=== PATIENT | female | born 1950 | race Hispanic/Latino ===

== ENCOUNTER 2017-02-08 10:58 | Inpatient (IN) | payer OTHER, MEDICARE ==
[2017-02-08 11:03] VITALS: BMI 24.5
--- NOTE | 2017-02-08 11:13 | C.PDOC ---
History Of Present Illness Patient is a 66 y/o F brought in for weakness. Patient seen immediately on my arrival. FS:114 on arrival. Patient reports that she went to bed normally last night and woke up at 5, fell to the ground and could not get up. Patient found by family and brought to ED at 11am. Patient complaining of R sided weakness and facial droop, with slurred speech. She reports hx of atrial fibrillation, but cannot state why she is not on anticoagulants. Denies hx of bleeding or significant anemia. PMD: Dr. Leiva Time Seen by Provider: 02/08/17 11:03 Chief Complaint (Nursing): Weakness/Neurological Deficit Past Medical History Vital Signs: Last Vital Signs Temp 98.6 F 02/08/17 11:04 Pulse 140 H 02/08/17 11:20 Resp 20 02/08/17 11:20 BP 118/99 H 02/08/17 11:20 Pulse Ox 98 02/08/17 11:20 - Medical History PMH: Atrial Fibrillation, Bronchitis, HTN, Hypothyroidism - [facility] Procedures EXCISE MINOR LES LID NEC (10/30/13) Family History: States: No Known Family Hx - Social History Hx Alcohol Use: Yes Hx Substance Use: No - Immunization History Hx Tetanus Toxoid Vaccination: No Hx Influenza Vaccination: Yes Hx Pneumococcal Vaccination: No Review Of Systems Except As Marked, All Systems Reviewed And Found Negative. Constitutional: Positive for: Weakness. Negative for: Fever Cardiovascular: Negative for: Chest Pain Respiratory: Negative for: Cough, Shortness of Breath, SOB with Excertion, Wheezing Genitourinary: Negative for: Dysuria Musculoskeletal: Negative for: Neck Pain Neurological: Positive for: Weakness, Numbness, Incoordination, Change in Speech. Negative for: Headache Physical Exam - Physical Exam Appears: Well, Non-toxic, No Acute Distress Head: Atraumatic, Normacephalic Eye(s): left: Other (L gaze deviation) Throat: Normal Neck: Normal, Normal ROM Chest: Symmetrical Cardiovascular: Rhythm Irregular Respiratory: Normal Breath Sounds, No Rales, No Rhonchi, No Wheezing Gastrointestinal/Abdominal: Soft, No Tenderness, No Mass, No Distention Back: Normal Inspection, No CVA Tenderness Extremity: Other (decreased strength to R side) Neurological/Psych: Oriented x3, No Normal Speech (slurred speech) Other Neurological Findings: Other (R facial droop) ED Course And Treatment - Laboratory Results Result Diagrams: 02/08/17 11:13 02/08/17 11:13 - Radiology CXR: Viewed By Me, Read By Radiologist CXR Interpretation: Yes: Other (Cardiomegaly is suggested. No infiltrate or pleural effusion. No pulmonary vascular derangement.) Critical Care Time - Critical Care Note Total Time (in mins): 30 Documented critical care: time excludes all time spent performing seperately billable procedures. NIHSS Stroke Scale - Date/Time Evaluation Performed Date Performed: 02/08/17 Time Performed: 11:04 - How Severe is the Stoke Level of Consciousness: 0=Alert LOC to Questions: 0=Both comments correct LOC to commands: 0=Obeys both correctly Best Gaze: 1=Partial gaze palsy Visual: 0=No visual loss Facial: 2=Partial (lower face paralysis) Motor Arm - Left: 0=No drift Motor Arm - Right: 1=Drift noted before 10 sec Motor Leg - Left: 0=No drift Motor Leg - Right: 1=Drift before 5 sec Limb Ataxia: 0=Absent Sensory: 0=Normal Best Language: 0=No aphasia Dysarthia: 1=Mild to moderate slurring Extinction & Inattention (Neglect): 0=Normal, no object Score: 6 Severity Of Stroke: 5-15= Moderate Stroke rTPA Inclusion/Exclusion - Refusal of Treatment Patient Refused Treatment: No - Inclusion Criteria for Altepase Patient is 18 years or Older: Yes The Clinical Diagnosis of Ischemic Stroke That is Causing a Potentially Disabling Neurological Deficit: Yes Time of Onset is Well Established to be Less Than 270 Minute Before Treatment Would Begin: No Risk/Benefit Discussed With Patient/Family Member Present: No Medical Decision Making Medical Decision Making: CT head shows L basal ganglia infarct. Spoke to Dr. Cummings, who recommends echo and standard cva workup. Patient is outside the window for TPA. Given cardizem 10mg IV and improvement of rapid atrial fibrillation. Spoke to Dr. Wiley, ICU who reports that patient can go to tele. Spoke to Dr. Muhammad and covering resident who will admit patient and order echo. Presenting ekg shows afib at 147bpm and improved to 105bpm with LAD after cardizem. Cxray negative. Labs reviewed Disposition - Disposition Disposition: HOSPITALIZED Disposition Time: 11:46 Condition: FAIR - Clinical Impression Clinical Impression: CVA (cerebral vascular accident)
[2017-02-08 11:19] LABS: BASO % 0.4 % (0.0-2.0); HEMATOCRIT 41.3 % (34.0-47.0); LYMPH # 0.8 K/uL (1.0-4.3); LYMPH % 6.9 % (20.0-40.0); MEAN CORPUSCULAR HGB CONC 33.3 g/dL (33.0-37.0); MEAN PLATELET VOLUME 7.5 fL (7.2-11.7); MONO # 0.8 K/uL (0.0-0.8); MONO % 6.8 % (0.0-10.0); PLATELET COUNT 182 K/uL (130-400); WHITE BLOOD COUNT 11.6 K/uL (4.8-10.8)
[2017-02-08 11:26] LABS: CHLORIDE 105 mmol/L (98-107)
[2017-02-08 11:27] LABS: SODIUM 141 mmol/L (132-148)
[2017-02-08 11:28] LABS: POTASSIUM 4.5 mmol/L (3.6-5.2)
[2017-02-08 11:30] LABS: ALB/GLOB RATIO 1.2 (1.0-2.1); ALKALINE PHOSPHATASE 54 U/L (38-126); ALT/SGPT 30 U/L (9-52); AST/SGOT 28 U/L (14-36); BILIRUBIN,TOTAL 0.8 mg/dL (0.2-1.3); BLOOD UREA NITROGEN 22 mg/dL (7-17); CALCIUM 9.8 mg/dl (8.6-10.4); CARBON DIOXIDE 23 mmol/L (22-30); CHOLESTEROL 201 mg/dL (0-199); GFR AFRICAN-AMERICAN > 60; GLUCOSE,RANDOM 119 mg/dL (65-105); TOTAL PROTEIN 7.5 g/dL (6.3-8.3)
--- NOTE | 2017-02-08 11:56 | RAD ---
HISTORY: cva COMPARISON: No prior. FINDINGS: LUNGS: No active pulmonary disease. PLEURA: No significant pleural effusion identified, no pneumothorax apparent. CARDIOVASCULAR: Cardiomegaly is suggested. No pulmonary vascular derangement nevertheless. OSSEOUS STRUCTURES: No significant abnormalities. VISUALIZED UPPER ABDOMEN: Normal. OTHER FINDINGS: None. IMPRESSION: Cardiomegaly is suggested. No infiltrate or pleural effusion. No pulmonary vascular derangement.
[2017-02-08 11:58] LABS: NEUTROPHIL 84 % (50-75); TOTAL CELLS COUNTED 100
--- NOTE | 2017-02-08 12:43 | CP.PCM.HP ---
History of Present Illness - History of Present Illness History of Present Illness: CC:" Blood Pressure" HPI: 66 year old female with past medical history of hypertension and atrial fibrillation presents to the emergency room after patient was found on the floor by EMS. Per patient she had no complaints the night prior. Patient states she woke up today at 5:30am and watched TV and had her normal routine. Patient that in the morning while she was checking her blood pressure she felt a bit dizzy but does not recall what time that happened. Patient states she does not remember falling on the floor. Per sister at bedside states the patient yelled "I can't breathe." That is when the sister ran downstairs but could not open the door because it was locked and her sister wasn't coming to the door. The sister called 911 and EMS found her on the floor and brought her to the hospital. Patient states this has never occurred in the past and she has never been hospitalized. Patient states she is compliant with all of her medication. Patient states she currently has a cough and blurry vision bilaterally. Patient states she does currently have weakness on her right arm but denies any numbness or tingling. Patient denies chest pain, shortness of breath, palpations, headache, dizziness, lightheadedness, numbness, tingling, nausea, vomiting, constipation, diarrhea, hematuria, dysuria, or change in hearing. Patient denies sick contacts or recent travel. PMD: Dr. 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 Patient smokes about a half to one pack per day for the past 30+ years. Patient denies alcohol use, illicit drug and sexual activity. Medications: 0.025mg Levothyroxine; 40mg Atorvastatin; 150mg Valsartan, Nebulizer daily Allergies: Penicillin (patient swells); Antihistamine (patient swells) Present on Admission - Present on Admission Any Indicators Present on Admission: No History of DVT/PE: No History of Uncontrolled Diabetes: No Urinary Catheter: No Review of Systems - Review of Systems Systems not reviewed;Unavailable: Unstable Vital Signs - Constitutional Constitutional: Weakness (right upper extremity weakness). absent: Fever, Headache - EENT Eyes: Blurred Vision Ears: absent: Decreased Hearing, Dizziness Nose/Mouth/Throat: absent: Hoarsness, Sore Throat - Cardiovascular Cardiovascular: absent: Chest Pain, Dyspnea, Palpitations - Respiratory Respiratory: Cough. absent: Dyspnea - Gastrointestinal Gastrointestinal: absent: Constipation, Diarrhea, Nausea, Vomiting - Genitourinary Genitourinary: absent: Dysuria, Hematuria - Musculoskeletal Musculoskeletal: absent: Numbness, Tingling - Integumentary Integumentary: Wounds - Neurological Neurological: absent: Abnormal Hearing, Dizziness, Numbness, Headaches, Paresthesias, Tingling Past Patient History - Past Social History Smoking Status: Never Smoked - CARDIAC Hx Atrial Fibrillation: Yes Hx Hypertension: Yes - PULMONARY Hx Bronchitis: Yes - ENDOCRINE/METABOLIC Hx Hypothyroidism: Yes - MUSCULOSKELETAL/RHEUMATOLOGICAL Hx Musculoskeletal Disorders: Yes (SEE COMMENT) Other/Comment: sciatica - PSYCHIATRIC Hx Substance Use: No - ANESTHESIA Hx Anesthesia: Yes Hx Anesthesia Reactions: No Hx Malignant Hyperthermia: No Meds Allergies/Adverse Reactions: Allergies Allergy/AdvReac Type Severity Reaction Status Date / Time Antihistamines - Alkylamine Allergy Mild a-fib Verified 02/08/17 11:00 Penicillins Allergy Mild RASH Verified 02/08/17 11:00 Physical Exam - Constitutional Appears: In Acute Distress - Head Exam Head Exam: ATRAUMATIC, NORMAL INSPECTION, NORMOCEPHALIC - Eye Exam Eye Exam: EOMI, Normal appearance, Nystagmus (right eye), Periorbital swelling ( right eye has minor swelling s/p fall), PERRL Pupil Exam: NORMAL ACCOMODATION - ENT Exam ENT Exam: Mucous Membranes Moist - Neck Exam Neck exam: Positive for: Normal Inspection - Respiratory Exam Respiratory Exam: Clear to Auscultation Bilateral, NORMAL BREATHING PATTERN. absent: Rales, Rhonchi, Wheezes, Stridor - Cardiovascular Exam Cardiovascular Exam: Tachycardia, Irregular Rhythm (atrial fibrillation ), +S1, +S2 - GI/Abdominal Exam GI & Abdominal Exam: Normal Bowel Sounds, Soft. absent: Tenderness - Extremities Exam Extremities exam: Positive for: tenderness. Negative for: pedal edema - Neurological Exam Neurological exam: Alert, Oriented x3 Additional comments: Cranial Nerves II-X, XII intact. Cranial nerve XII on the right abnormal - Expanded Neurological Exam Expanded Patient oriented to: person, place, time Speech: Slurred Speech Cranial nerves: EOM's Intact: Normal, Facial Palsey w/Forehead Movement: Normal , Facial Sensation: Normal, Nystagmus: Abnormal Right, Tongue Deviation: Normal Upper motor neuron: Babinski Sign: Normal Sensory exam: Lower Extremity 2 Point Discrimination: Normal, Lower Extremity Light Touch: Normal, Upper Extremity 2 Point Discrimination: Normal, Upper Extremity Light Touch: Normal Neuro motor strength exam: Left Upper Extremity: 5, Right Upper Extremity: 3, Left Lower Extremity: 5, Right Lower Extremity: 5 Coma Scale Eye Opening: SPONTANEOUS Coma Scale Motor Response: OBEYS COMMANDS Coma Scale Verbal: Oriented Coma Scale Total: 15 - Psychiatric Exam Psychiatric exam: Normal Affect - Skin Skin Exam: Abrasion (right knee abrasion), Dry, Normal Color, Warm Results - Vital Signs Recent Vital Signs: Last Vital Signs Temp 98.6 F 02/08/17 11:04 Pulse 140 H 02/08/17 11:20 Resp 20 02/08/17 11:20 BP 118/99 H 02/08/17 11:20 Pulse Ox 98 02/08/17 11:20 - Labs Result Diagrams: 02/08/17 11:13 02/08/17 11:13 Assessment & Plan (1) CVA (cerebral vascular accident) Assessment and Plan: Neurology consult: Dr. Cummings --> help appreciated CT of the Head: An acute or subacute brain infarction is suspected at the left basal ganglia at the posterior superior distribution. Follow-up CT or MRI is advised. No definite intracranial hemorrhage. Limited age-related diffuse cerebral atrophy. Per Dr. Zoila iniguez to start therapeutic Lovenox for atrial fibrillation f/u Carotid doppler f/u ECHO f/u PT eval and treat f/u OT eval and treat repeat swallow eval f/u Speech therapy Status: Acute (2) History of atrial fibrillation Assessment and Plan: Patient was not taking any medications for her atrial fibrillation at home. Patient was given a stat one time dose of 10mg Cardizem in the ED Cardiology Consult: Dr. Laguerre --> help appreciated ICU Consult: Dr. Wiley --> help appreciated - Patient started on 5mg IVP once in the ED per Dr. Wiley - Possible need for Cardizem drip HR becomes unstable f/u ECHO f/u carotid doppler Per Dr. Zoila iniguez to start therapeutic Lovenox for atrial fibrillation - Started 70mg Lovenox Q12 Started 300mg of Aspirin per rectum as patient failed the swallow evaluation Status: Acute (3) History of hypertension Assessment and Plan: Home medication: 150mg Valsartan - placed on hold because patient failed her swallow evaluation - Patient did not seem like she was compliant on her medication since she had 2 bottles of the medication completely full Status: Chronic (4) CAD (coronary artery disease) Assessment and Plan: Patient did not state she has history of coronary artery disease but her home medication is: Home medication: 40mg of Atorvastatin placed on hold since patient failed swallow evaluation - Patient did not seem like she was compliant on her medication since she had 4 bottles of the medication completely full Status: Chronic (5) History of hypothyroidism Assessment and Plan: Home medication: 0.025mg Levothyroixine - placed on hold because patient failed her swallow evaluation Status: Chronic
--- NOTE | 2017-02-08 12:44 | CT ---
PROCEDURE: CT HEAD WITHOUT CONTRAST. HISTORY: Code Stroke COMPARISON: None available. TECHNIQUE: Axial computed tomography images were obtained through the head/brain without intravenous contrast. Radiation dose: Total exam DLP = 937 mGy-cm. This CT exam was performed using one or more of the following dose reduction techniques: Automated exposure control, adjustment of the mA and/or kV according to patient size, and/or use of iterative reconstruction technique. FINDINGS: HEMORRHAGE: No intracranial hemorrhage. BRAIN: Well-circumscribed lucency is seen at the left basal ganglia at the mid to posterior portion and extends cephalad thinned to abut the left lateral ventricle body region. No intracranial hemorrhage is appreciated throughout the intracranial contents and pattern is suggestive of a acute or subacute brain infarction of the left basal ganglia. No additional lucency throughout the supra or infratentorial compartments to suggest similar infarction. No chronic lobar infarction identified throughout. Limited diffuse cerebral atrophy identified. No mass effect or suspicious extra-axial fluid collection. Midline brain and appears unremarkable grossly. VENTRICLES: Unremarkable. No hydrocephalus. CALVARIUM: Unremarkable. PARANASAL SINUSES: Unremarkable as visualized. No significant inflammatory changes. MASTOID AIR CELLS: Unremarkable as visualized. No inflammatory changes. OTHER FINDINGS: None. IMPRESSION: An acute or subacute brain infarction is suspected at the left basal ganglia at the posterior superior distribution. Follow-up CT or MRI is advised. No definite intracranial hemorrhage. Limited age-related diffuse cerebral atrophy. These stroke code results were communicated to Dr. Correia by telephone on 02/08/2017 11:20 a.m. red directly off the CT console due to PACs failure, written down with read back verification.
[2017-02-08] MEDS ORDERED: Sodium Chloride 0.9% 500 ML IV ONE ×2 (15:41→22:26)
[2017-02-08] MEDS ORDERED: Metoprolol 1 mg/ml Inj IVP ONE ×2 (15:45→22:26)
--- NOTE | 2017-02-08 17:19 | CP.PCM.CON ---
History of Present Illness - History of Present Illness History of Present Illness: 66 F with h/o tobacco abuse evaluated in ER with new stroke and afib rvr. According to patient she was unable to get up from the floor when she woke up and brought in by relatives with significant right arm weakness, right leg weakness, some slurred speech. Afib was noticed on the monitor and rate improved with 10mg iv given initially in ER. CT head showed left basal ganglia hypodensity suggesting subacute stroke. In ER HR ranging 90 to 150's BP in 100/ 50 range. Patient was awake oriented, some intermittent coughing noticed. Patient converted to sinus while spontaneously prior given to iv metoprolol. PMH tobacco abuse, ?htn, ?hypothyroid PSH none Meds ?synthyroid, losartan Allergies noticed Family history not available Review of Systems - Review of Systems All systems: reviewed and no additional remarkable complaints except (HPI) Past Patient History - Past Social History Smoking Status: Heavy Smoker > 10 Cigarettes Daily Alcohol: None Drugs: Denies Home Situation {Lives}: With Family - CARDIAC Hx Atrial Fibrillation: Yes Hx Hypertension: Yes - PULMONARY Hx Bronchitis: Yes - ENDOCRINE/METABOLIC Hx Hypothyroidism: Yes - MUSCULOSKELETAL/RHEUMATOLOGICAL Hx Musculoskeletal Disorders: Yes (SEE COMMENT) Other/Comment: sciatica - PSYCHIATRIC Hx Substance Use: No - ANESTHESIA Hx Anesthesia: Yes Hx Anesthesia Reactions: No Hx Malignant Hyperthermia: No Meds Allergies/Adverse Reactions: Allergies Allergy/AdvReac Type Severity Reaction Status Date / Time Antihistamines - Alkylamine Allergy Mild a-fib Verified 02/08/17 11:00 Penicillins Allergy Mild RASH Verified 02/08/17 11:00 - Medications Medications: Current Medications Albuterol/Ipratropium (Duoneb 3 Mg/0.5 Mg (3 Ml) Ud) 3 ml INH RQ6 [facility] Aspirin (Aspirin Supp) 300 mg OK DAILY [facility] Last Admin: 02/08/17 15:27 Dose: 300 mg Enoxaparin Sodium (Lovenox) 70 mg SC Q12H [facility] Nicotine (Nicoderm Cq) 1 patch TD DAILY [facility] Last Admin: 02/08/17 15:27 Dose: 1 patch Physical Exam - Additional Findings Additional findings: * HEENT JUDSON, weak right angle of mouth * Neck supple * Chest Clear, no wheezing, no rale * CVS Irregular then spontaneously converted to sinus * Ext no edema, abrasion notice on right knee, right elbow has redness, no tenderness * CABIN [employer] awake, very poor gag b/l, not coughing with tongue depressor, weak right angle of mouth, right buccinator, right arm 3-4/5, left arm 5/5, left leg 5/5, l Results - Vital Signs Recent Vital Signs: Last Vital Signs Temp 99.1 F 02/08/17 15:00 Pulse 67 02/08/17 16:02 Resp 20 02/08/17 16:02 BP 105/52 L 02/08/17 16:02 Pulse Ox 98 02/08/17 16:02 - Labs Result Diagrams: 02/08/17 11:13 02/08/17 11:13 Assessment & Plan - Assessment and Plan (Free Text) Assessment: * New basal ganglia stroke on the left? frontal extension with weakness on right side as noted in exam, poor gag. * New on set afib with rvr, with spontaneous conversion to the sinus * Lower side bp * Tobacco abuse Plan: * Rate rhythm control * NS bolus 500 * Aspiration precautions, as patient does not have good gag * Therapeutic anticoagulation as new stroke with afib * speech swallow eval, pt/ot * Maintain euglycemia * Q1h neurocheck, monitor in icu * CTA as recommended by neurology * GI/DVT prophylaxis * See orders for detail.
[2017-02-08] MEDS ORDERED: Iodixanol 320 MG/ML 100 ML BOTTLE IV ONE (17:47)
[2017-02-08] MEDS ORDERED: Enoxaparin 80 mg Syringe SC SCH (18:00)
--- NOTE | 2017-02-08 18:20 | CP.PCM.CON ---
History of Present Illness - History of Present Illness History of Present Illness: Mrs. Reyes is a 66-year-old woman who was brought to the ED after waking up today with right side weakness and speech difficulty. In the ED she was found to be in Afib with RVR. CT scan of the head showed subacute left basal ganglia infarct with some early changes in the left frontal region as well. She was given metoprolol and she converted to sinus rhythm and started on Lovenox for atrial fibrillation. When I saw the patient, she was able to comprehend normally, and her speech was fluent in content but dysarthric. She continued to complain of the right sided weakness and was having significant dysarthria with oropharyngeal muscle weakness. I recommended close observation and admission to the ICU for Q1 hour neuro-checks. This was discussed with the ICU attending. Review of Systems - Review of Systems All systems: reviewed and no additional remarkable complaints except Past Patient History - Past Social History Smoking Status: Heavy Smoker > 10 Cigarettes Daily Alcohol: None Drugs: Denies Home Situation {Lives}: With Family - CARDIAC Hx Atrial Fibrillation: Yes Hx Hypertension: Yes - PULMONARY Hx Bronchitis: Yes - ENDOCRINE/METABOLIC Hx Hypothyroidism: Yes - MUSCULOSKELETAL/RHEUMATOLOGICAL Hx Musculoskeletal Disorders: Yes (SEE COMMENT) Other/Comment: sciatica - PSYCHIATRIC Hx Substance Use: No - ANESTHESIA Hx Anesthesia: Yes Hx Anesthesia Reactions: No Hx Malignant Hyperthermia: No Meds Allergies/Adverse Reactions: Allergies Allergy/AdvReac Type Severity Reaction Status Date / Time Antihistamines - Alkylamine Allergy Mild a-fib Verified 02/08/17 11:00 Penicillins Allergy Mild RASH Verified 02/08/17 11:00 - Medications Medications: Current Medications Albuterol/Ipratropium (Duoneb 3 Mg/0.5 Mg (3 Ml) Ud) 3 ml INH RQ6 [facility] Aspirin (Aspirin Supp) 300 mg [place] DAILY [facility] Last Admin: 02/08/17 15:27 Dose: 300 mg Enoxaparin Sodium (Lovenox) 70 mg SC Q12H [facility] Nicotine (Nicoderm Cq) 1 patch TD DAILY [facility] Last Admin: 02/08/17 15:27 Dose: 1 patch Physical Exam - Constitutional Appears: In Acute Distress - Head Exam Head Exam: ATRAUMATIC, NORMAL INSPECTION, NORMOCEPHALIC - Eye Exam Eye Exam: EOMI, Normal appearance, PERRL - ENT Exam ENT Exam: Normal Exam - Neck Exam Neck exam: Positive for: Normal Inspection - Respiratory Exam Respiratory Exam: NORMAL BREATHING PATTERN - Cardiovascular Exam Cardiovascular Exam: Irregular Rhythm, +S1, +S2 - GI/Abdominal Exam GI & Abdominal Exam: Normal Bowel Sounds, Soft. absent: Tenderness - Rectal Exam Rectal Exam: Deferred - Extremities Exam Extremities exam: Positive for: normal inspection - Back Exam Back exam: NORMAL INSPECTION - Neurological Exam Neurological exam: Alert, CN II-XII Intact, Oriented x3 - Expanded Neurological Exam Expanded Patient oriented to: person, place, time Speech: Slurred Speech Cranial nerves: Facial Palsey w/Forehead Movement: Normal, Facial Sensation: Normal Ataxia: No Cerebellar Function: Finger to Nose: Abnormal Right, Heel to Johnson: Abnormal Right Upper motor neuron: Babinski Sign: Abnormal Right Sensory exam: Lower Extremity 2 Point Discrimination: Normal, Lower Extremity Light Touch: Normal, Lower Extremity Pin Prick: Normal, Lower Extremity Temperature: Normal, Upper Extremity 2 Point Discrimination: Normal, Upper Extremity Light Touch: Normal, Upper Extremity Pin Prick: Normal, Upper Extremity Temperature: Normal Neuro motor strength exam: Left Upper Extremity: 5, Right Upper Extremity: 3, Left Lower Extremity: 5, Right Lower Extremity: 3 DTR: Achilles Tendon Left: 2+, Achilles Tendon Right: 2+, Bicep Left: 2+, Bicep Right: 2+, Brachioradialis Left: 2+, Brachioradialis Right: 2+, Patellar Left: 2 +, Patellar Right: 2+, Tricep Left: 2+, Tricep Right: 2+ - Psychiatric Exam Psychiatric exam: Normal Affect, Normal Mood - Skin Skin Exam: Dry, Intact, Normal Color, Warm Results - Vital Signs Recent Vital Signs: Last Vital Signs Temp 98.5 F 02/08/17 16:36 Pulse 68 02/08/17 16:36 Resp 20 02/08/17 16:36 BP 118/65 02/08/17 16:36 Pulse Ox 98 02/08/17 16:36 - Labs Result Diagrams: 02/08/17 11:13 02/08/17 11:13 Labs: Laboratory Results - last 24 hr 02/08/17 17:22 POC Glucose (mg/dL) 93 Assessment & Plan (1) CVA (cerebral vascular accident) Assessment and Plan: The patient has an acute to subacute ischemic stroke involving the left basal ganglia and frontal lobe, likely due to cardio-embolic etiology in the setting of atrial fibrillation. I recommend the followin. Admit to ICU for close observation and Q1 hour neuro-checks 2. STAT CTA of the head/neck; MRI of the brain without contrast, when possible. Echocardiogram with bubble study 3. Treat Afib per ICU team and cardiology (may use anticoagulation, I recommend Eliquis 5 mg BID, if she is able to swallow) 4. PT/OT eval and treat 5. NPO till swallow eval 6. Fluids with NS at 100 mL/hr 7. Permissive HTN (only treat BP that is higher than 220/110 mm Hg for the next 24 hours) 8. Crestor 20 mg daily 9. Case management consult Thank you. Status: Acute Priority: High
--- NOTE | 2017-02-08 18:54 | CT ---
PROCEDURE: CT Angiography of the Brain. HISTORY: stroke with afib COMPARISON: Comparison is made to the previous CT of the head dated 02/08/2017 TECHNIQUE: CT angiography of the neck and intracranial arteries was performed. Coronal and sagittal maximum intensity projection reformated images were generated. This CT exam was performed using one or more of the following dose reduction techniques: Automated exposure control, adjustment of the mA and/or kV according to patient size, and/or use of iterative reconstruction technique. Total exam DLP: 621.22. FINDINGS: RIGHT CAROTID ARTERIES: Common Carotid Artery: Mild atherosclerotic disease and intimal thickening with foci of calcifications seen bilaterally. Carotid Bifurcation: No evidence of significant stenosis. Small foci of calcification. Internal Carotid Artery:Normal. External Carotid Artery (proximal branches): Normal. LEFT CAROTID ARTERIES: Common Carotid Artery: Mild atherosclerotic disease. Carotid Bifurcation: Foci of calcification seen at the carotid bifurcation associated with mural thickening. Internal Carotid Artery:Normal. External Carotid Artery (proximal branches): Normal. VERTEBRAL ARTERIES: Right Vertebral Artery: Normal. Left Vertebral Artery: Normal. INTERNAL CEREBRAL ARTERIES: Unremarkable. The skull base, petrous, cavernous and supraclinoid segments are bilaterally widely patient. ANTERIOR CEREBRAL ARTERIES: Unremarkable. A1 and A2 segments are widely patent. Smaller distal branches unremarkable, as visualized. MIDDLE CEREBRAL ARTERIES: There is occlusion at the distal left M1. The proximal portion M2 and M2 branches are also occluded. There is paucity of left middle cerebral artery branches compared to the right. There is no evidence of stenosis or occlusion at the right middle cerebral artery. POSTERIOR CIRCULATION: Basilar Artery: Unremarkable. Distal Vertebral Arteries: Unremarkable. Posterior Cerebral Arteries: Unremarkable. Posterior Inferior Cerebellar Arteries: Unremarkable. ANEURYSM/ VASCULAR MALFORMATIONS: None. OTHER FINDINGS: None. IMPRESSION: Occlusion at the distal left M1 likely due to thrombosis. Reconstitution of the distal left M2 branches. Atherosclerotic disease. Findings were reported to and discussed with the referring physician at 6:45 p.m. on 02/08/2017.
[2017-02-08] MEDS ORDERED: Eptifibatide 0.75 mg/ml 75 MG/100 ML BOTTLE IV SCH (19:15)
[2017-02-08] MEDS ORDERED: Eptifibatide 20 mg/10mL Inj IVP ONE (19:15)
[2017-02-08] MEDS: Sodium Chloride 0.9% 1,000 ML IV SCH (20:32)
[2017-02-08] MEDS: Albuterol-Ipratrop 3 mg / 0.5 (3 ml) UD INH SCH (21:03)
--- NOTE | 2017-02-08 21:21 | CARD ---
APPROVED REPORT EXAM: Two-dimensional and M-mode echocardiogram with Doppler and color Doppler. Other Information Quality : Technically DifficultRhythm : Atrial Fibrillation INDICATION CVA/TIA S/p stroke 2D DIMENSIONS IVSd1.0 (0.7-1.1cm)LVDd4.6 (3.9-5.9cm) PWd1.0 (0.7-1.1cm)LVDs3.5 (2.5-4.0cm) FS (%) 24.5 %LVEF (%)45.0 (>50%) M-Mode DIMENSIONS Left Atrium (MM)3.76 (2.5-4.0cm)Aortic Root3.25 (2.2-3.7cm) Aortic Cusp Exc.1.92 (1.5-2.0cm) Mitral Valve E/A ratio0.0 TDI E/Lateral E'0.0E/Medial E'0.0 Tricuspid Valve TR Peak [id number] Peak [id number] LEFT VENTRICLE The left ventricle is normal size. There is normal left ventricular wall thickness. The left ventricular function is mildly reduced. The left ventricular ejection fraction is about 45%. No regional wall motion abnormalities noted. The left ventricular diastolic function is normal. No left ventricle thrombus noted on this study. There is no ventricular septal defect visualized. There is no left ventricular aneurysm. There is no mass noted in the left ventricle. RIGHT VENTRICLE The right ventricle is normal size. There is normal right ventricular wall thickness. The right ventricular systolic function is normal. ATRIA The left atrium size is normal. The right atrium size is normal. The interatrial septum is intact with no evidence for an atrial septal defect. AORTIC VALVE The aortic valve is normal in structure and function. Leaflets are mildly thickened. No aortic regurgitation is present. There is no aortic valvular stenosis. There is no aortic valvular vegetation. MITRAL VALVE The mitral valve is normal in structure and function. There is no evidence of mitral valve prolapse. There is no mitral valve stenosis. There is no mitral valve regurgitation noted. TRICUSPID VALVE The tricuspid valve is normal in structure and function. There is no tricuspid valve regurgitation noted. There is no tricuspid valve prolapse or vegetation. There is no tricuspid valve stenosis. PULMONIC VALVE The pulmonary valve is normal in structure and function. There is no pulmonic valvular regurgitation. There is no pulmonic valvular stenosis. GREAT VESSELS The aortic root is normal in size. The ascending aorta is normal in size. The pulmonary artery is normal. The IVC is normal in size and collapses >50% with inspiration. PERICARDIAL EFFUSION The pericardium appears normal. There is no pleural effusion.
[2017-02-08] MEDS ORDERED: Digoxin 500 mcg/2ml (0.5 mg/2ml) Inj IVP ONE (22:26)
[2017-02-09] MEDS: Albuterol-Ipratrop 3 mg / 0.5 (3 ml) UD INH SCH ×4 (01:43→19:16)
[2017-02-09] MEDS: Sodium Chloride 0.9% 1,000 ML IV SCH ×3 (05:30→18:26)
[2017-02-09] MEDS ORDERED: Levothyroxine 25 MCG TAB PO SCH (06:30)
[2017-02-09 06:34] LABS: INR 1.1
[2017-02-09 06:35] LABS: EOS % 0.1 % (0.0-4.0); HEMATOCRIT 34.3 % (34.0-47.0); LYMPH # 1.1 K/uL (1.0-4.3); LYMPH % 16.8 % (20.0-40.0); MEAN CELL VOLUME 106.1 fL (81.0-99.0); MEAN CORPUSCULAR HGB CONC 33.9 g/dL (33.0-37.0); MEAN PLATELET VOLUME 7.8 fL (7.2-11.7); MONO # 0.6 K/uL (0.0-0.8); MONO % 8.6 % (0.0-10.0); RED CELL DISTRIBUTION WIDTH 12.9 % (11.5-14.5); WHITE BLOOD COUNT 6.8 K/uL (4.8-10.8)
[2017-02-09 06:39] LABS: CHLORIDE 106 mmol/L (98-107); POTASSIUM 3.9 mmol/L (3.6-5.2); SODIUM 140 mmol/L (132-148)
[2017-02-09 06:41] LABS: BILIRUBIN,TOTAL 0.7 mg/dL (0.2-1.3); GFR AFRICAN-AMERICAN > 60
[2017-02-09 06:42] LABS: ALB/GLOB RATIO 1.1 (1.0-2.1); ALKALINE PHOSPHATASE 43 U/L (38-126); ALT/SGPT 36 U/L (9-52); AST/SGOT 30 U/L (14-36); BLOOD UREA NITROGEN 15 mg/dL (7-17); CALCIUM 8.7 mg/dl (8.6-10.4); CARBON DIOXIDE 25 mmol/L (22-30); GLUCOSE,RANDOM 92 mg/dL (65-105)
[2017-02-09 06:52] LABS: MAGNESIUM 1.8 mg/dL (1.6-2.3); PHOSPHOROUS 3.1 mg/dL (2.5-4.5)
[2017-02-09 07:33] LABS: T4 6.69 ug/dL (5.5-11.0)
[2017-02-09 07:45] LABS: THYROID STIMULATING HORMONE 3.46 mIU/L (0.46-4.68)
--- NOTE | 2017-02-09 08:09 | CP.PCM.CON ---
History of Present Illness - History of Present Illness History of Present Illness: Reason For Consultation: A Fib HPI: 66F with Hx of A Fib admitted to [facility] ICU for acute CVA. Patient presented to ER with syncope and Right sided weakness. Patient had ischemic CVA based upon imaging. Due to uncertainty of the time patient was not a candidate for tPA. Patient had rapid A Fib in the ER requiring IV cardizem to control the heart rate. Patient currently in Sinus rhythm. Denies chest pain and palpitations Review of Systems - Constitutional Constitutional: Weakness - Cardiovascular Cardiovascular: absent: Chest Pain, Dyspnea - Respiratory Respiratory: absent: Dyspnea - Gastrointestinal Gastrointestinal: absent: Abdominal Pain - Musculoskeletal Musculoskeletal: absent: Arthralgias - Neurological Additional comments: As per neuro evaluation Past Patient History - Past Medical History & Family History Past Medical History?: Yes - Past Social History Smoking Status: Heavy Smoker > 10 Cigarettes Daily Alcohol: None Drugs: Denies Home Situation {Lives}: With Family - CARDIAC Hx Atrial Fibrillation: Yes Hx Hypertension: Yes - PULMONARY Hx Bronchitis: Yes - NEUROLOGICAL Hx Neurological Disorder: No - HEENT Hx HEENT Problems: No - RENAL Hx Chronic Kidney Disease: No - ENDOCRINE/METABOLIC Hx Hypothyroidism: Yes - HEMATOLOGICAL/ONCOLOGICAL Hx Blood Disorders: No - INTEGUMENTARY Hx Dermatological Problems: No - MUSCULOSKELETAL/RHEUMATOLOGICAL Hx Musculoskeletal Disorders: Yes (SEE COMMENT) Other/Comment: sciatica - GASTROINTESTINAL Hx Gastrointestinal Disorders: No - GENITOURINARY/GYNECOLOGICAL Hx Genitourinary Disorders: No - PSYCHIATRIC Hx Psychophysiologic Disorder: No Hx Substance Use: No - ANESTHESIA Hx Anesthesia: Yes Hx Anesthesia Reactions: No Hx Malignant Hyperthermia: No Meds Allergies/Adverse Reactions: Allergies Allergy/AdvReac Type Severity Reaction Status Date / Time Antihistamines - Alkylamine Allergy Mild a-fib Verified 02/08/17 11:00 Penicillins Allergy Mild RASH Verified 02/08/17 11:00 - Medications Medications: Current Medications Albuterol/Ipratropium (Duoneb 3 Mg/0.5 Mg (3 Ml) Ud) 3 ml INH RQ6 [facility] Last Admin: 02/09/17 07:19 Dose: 3 ml Famotidine (Pepcid) 20 mg IVP DAILY [facility] Eptifibatide (Integrilin) 75 mg in 100 mls @ 2.479 mls/hr IV .Q24H [facility] PRN Reason: 0.5 MCG/KG/MIN Last Admin: 02/08/17 20:17 Dose: 2.479 mls/hr Sodium Chloride (Sodium Chloride 0.9%) 1,000 mls @ 100 mls/hr IV .Q10H [facility] Last Admin: 02/09/17 07:29 Dose: 100 mls/hr Nicotine (Nicoderm Cq) 1 patch TD DAILY [facility] Last Admin: 02/08/17 15:27 Dose: 1 patch Pneumococcal Polyvalent Vaccine (Pneumovax 23 Vaccine) 0.5 ml IM .ONCE ONE Stop: 02/10/17 10:01 Physical Exam - Constitutional Appears: No Acute Distress - Head Exam Head Exam: ATRAUMATIC - Eye Exam Eye Exam: EOMI, PERRL - ENT Exam ENT Exam: Mucous Membranes Moist - Neck Exam Neck exam: Positive for: Full Rom, Normal Inspection - Respiratory Exam Respiratory Exam: NORMAL BREATHING PATTERN - Cardiovascular Exam Cardiovascular Exam: REGULAR RHYTHM, +S1, +S2 - Neurological Exam Additional comments: Neuro exam as per Neuro eval - Psychiatric Exam Psychiatric exam: Normal Mood Results - Vital Signs Recent Vital Signs: Last Vital Signs Temp 98.2 F 02/09/17 04:00 Pulse 66 02/09/17 06:30 Resp 23 02/09/17 06:30 BP 127/55 L 02/09/17 05:54 Pulse Ox 98 02/09/17 06:30 - Labs Result Diagrams: 02/09/17 06:19 02/09/17 06:19 Labs: Laboratory Results - last 24 hr 02/08/17 02/08/17 02/09/17 17:22 23:06 06:19 WBC 6.8 RBC 3.23 L Hgb 11.6 D Hct 34.3 MCV 106.1 H MCH 36.0 H MCHC 33.9 RDW 12.9 Plt Count 133 MPV 7.8 Neut % (Auto) 74.5 Lymph % (Auto) 16.8 L Ceiba % (Auto) 8.6 Eos % (Auto) 0.1 Baso % (Auto) 0.0 Neut # 5.1 Lymph # 1.1 Ceiba # 0.6 Eos # 0.0 Baso # 0.0 PT INR APTT Sodium Potassium Chloride Carbon Dioxide Anion Gap BUN Creatinine Est GFR ( Amer) Est GFR (Non-Af Amer) POC Glucose (mg/dL) 93 74 Random Glucose Calcium Phosphorus Magnesium Total Bilirubin AST ALT Alkaline Phosphatase Total Protein Albumin Globulin Albumin/Globulin Ratio Thyroxine (T4) TSH 3rd Generation 02/09/17 02/09/17 02/09/17 06:19 06:19 06:19 WBC RBC Hgb Hct MCV MCH MCHC RDW Plt Count MPV Neut % (Auto) Lymph % (Auto) Ceiba % (Auto) Eos % (Auto) Baso % (Auto) Neut # Lymph # Ceiba # Eos # Baso # PT 12.1 INR 1.1 APTT 27 Sodium 140 Potassium 3.9 Chloride 106 Carbon Dioxide 25 Anion Gap 13 BUN 15 Creatinine 0.8 Est GFR ( Amer) > 60 Est GFR (Non-Af Amer) > 60 POC Glucose (mg/dL) Random Glucose 92 Calcium 8.7 Phosphorus 3.1 Magnesium 1.8 Total Bilirubin 0.7 AST 30 ALT 36 Alkaline Phosphatase 43 Total Protein 6.0 L Albumin 3.1 L D Globulin 2.9 Albumin/Globulin Ratio 1.1 Thyroxine (T4) 6.69 TSH 3rd Generation 3.46 02/09/17 07:08 WBC RBC Hgb Hct MCV MCH MCHC RDW Plt Count MPV Neut % (Auto) Lymph % (Auto) Ceiba % (Auto) Eos % (Auto) Baso % (Auto) Neut # Lymph # Ceiba # Eos # Baso # PT INR APTT Sodium Potassium Chloride Carbon Dioxide Anion Gap BUN Creatinine Est GFR ( Amer) Est GFR (Non-Af Amer) POC Glucose (mg/dL) 89 Random Glucose Calcium Phosphorus Magnesium Total Bilirubin AST ALT Alkaline Phosphatase Total Protein Albumin Globulin Albumin/Globulin Ratio Thyroxine (T4) TSH 3rd Generation Assessment & Plan - Assessment and Plan (Free Text) Assessment: 1. Paraxysmal A Fib: Rate controlled. Now NSR. Patient receiving Integrilin drip. Recommend adding therapeutic Lovenox till patient can take oral Eliquis, If ok from neurology. Not on any fixed dose cardizem or Lopressor to avaoid hypotension. Will give prn IV Lopressor 2. CAD: ECHO with EF of 40-45% and some wall motion abnormalities. Given risk factors CAD high likely. No active work up for CAD at this time. Recommend antiplatelets and statins 3. CVA: Management as per Stroke neurologist. CVA most likley from A Fib. However will do bubble study today with TTE and LASHAWN Sunday
--- NOTE | 2017-02-09 12:40 | CP.PCM.PN ---
Subjective - Date & Time of Evaluation Date of Evaluation: 02/09/17 Time of Evaluation: 12:34 - Subjective Subjective: Mrs. Reyes was seen and examined today at bedside in the ICU. She was significantly more alert today with improved facial droop and movement on the right side. There were no acute events overnight. She was started on Integrillin at around 12 AM. I discussed the plan with the ICU attending, as well as cardiology, to repeat a CT head at 2PM (14 hours after Integrillin), then if the CT head does not show any hemorrhagic conversion, we will give aspirin 81 mg. We will stop Integrillin at 16 hours and give 2.5 mg of Eliquis , which we will maintain every 12 hours (Eliquis 2.5 mg Q12). Objective - Vital Signs/Intake and Output Vital Signs (last 24 hours): Temp Pulse Resp BP Pulse Ox 98.1 F 66 23 127/55 L 98 02/09/17 08:00 02/09/17 06:30 02/09/17 06:30 02/09/17 05:54 02/09/17 06:30 Intake and Output: 02/09/17 02/09/17 06:59 18:59 Intake Total 1478.0 616.8 Output Total 750 200 Balance 728.0 416.8 - Medications Medications: Current Medications Albuterol/Ipratropium (Duoneb 3 Mg/0.5 Mg (3 Ml) Ud) 3 ml INH RQ6 [facility] Last Admin: 02/09/17 07:19 Dose: 3 ml Famotidine (Pepcid) 20 mg IVP DAILY [facility] Last Admin: 02/09/17 09:30 Dose: 20 mg Eptifibatide (Integrilin) 75 mg in 100 mls @ 2.479 mls/hr IV .Q24H [facility] PRN Reason: 0.5 MCG/KG/MIN Last Admin: 02/08/17 20:17 Dose: 2.479 mls/hr Sodium Chloride (Sodium Chloride 0.9%) 1,000 mls @ 100 mls/hr IV .Q10H [facility] Last Admin: 02/09/17 07:29 Dose: 100 mls/hr Nicotine (Nicoderm Cq) 1 patch TD DAILY [facility] Last Admin: 02/08/17 15:27 Dose: 1 patch Pneumococcal Polyvalent Vaccine (Pneumovax 23 Vaccine) 0.5 ml IM .ONCE ONE Stop: 02/10/17 10:01 - Labs Labs: 02/09/17 06:19 02/09/17 06:19 PT 12.1 SECONDS (9.7-12.2) 02/09/17 06:19 INR 1.1 02/09/17 06:19 APTT 27 SECONDS (21-34) 02/09/17 06:19 - Neurological Exam Neurological Exam: Alert, Awake, CN II-XII Intact, Oriented x3 Neuro motor strength exam: Left Upper Extremity: 5, Right Upper Extremity: 3, Left Lower Extremity: 5, Right Lower Extremity: 4 Additional comments: NIHSS= 4 Assessment and Plan (1) CVA (cerebral vascular accident) Assessment & Plan: Left MCA infarct with residual distal thrombus s/p integrillin bolus and drip, she is improving. Will continue infusion as outlined above. Will repeat CT head non-contrast and CTA of the head/neck at 2 PM and follow-up with the plan depending on the results. Status: Acute
--- NOTE | 2017-02-09 14:59 | CP.PCM.PN ---
<Eugenie Fisher - Last Filed: 02/09/17 18:55> Subjective - Date & Time of Evaluation Date of Evaluation: 02/09/17 Time of Evaluation: 07:00 - Subjective Subjective: Medicine Progress Note: Patient was seen and examined in the AM at bedside. Per nurse the patient passed the swallow the evaluation. Patient states her vision is still blurry and it is has not changed since yesterday. Patient states her right arm is a bit painful when she abducts her arm. Patient denies any other complaints. Objective - Vital Signs/Intake and Output Vital Signs (last 24 hours): Temp Pulse Resp BP Pulse Ox 98.1 F 66 23 127/55 L 98 02/09/17 08:00 02/09/17 06:30 02/09/17 06:30 02/09/17 05:54 02/09/17 06:30 Intake and Output: 02/09/17 02/09/17 06:59 18:59 Intake Total 1478.0 616.8 Output Total 750 200 Balance 728.0 416.8 - Medications Medications: Current Medications Albuterol/Ipratropium (Duoneb 3 Mg/0.5 Mg (3 Ml) Ud) 3 ml INH RQ6 [facility] Last Admin: 02/09/17 13:23 Dose: 3 ml Apixaban (Eliquis) 2.5 mg PO BID [facility] Diphenhydramine HCl (Benadryl) 25 mg PO ONCE ONE Stop: 02/09/17 15:01 Famotidine (Pepcid) 20 mg IVP DAILY [facility] Last Admin: 02/09/17 09:30 Dose: 20 mg Eptifibatide (Integrilin) 75 mg in 100 mls @ 2.479 mls/hr IV .Q24H [facility] PRN Reason: 0.5 MCG/KG/MIN Last Admin: 02/08/17 20:17 Dose: 2.479 mls/hr Sodium Chloride (Sodium Chloride 0.9%) 1,000 mls @ 100 mls/hr IV .Q10H [facility] Last Admin: 02/09/17 07:29 Dose: 100 mls/hr Nicotine (Nicoderm Cq) 1 patch TD DAILY [facility] Last Admin: 02/09/17 13:38 Dose: 1 patch Pneumococcal Polyvalent Vaccine (Pneumovax 23 Vaccine) 0.5 ml IM .ONCE ONE Stop: 02/10/17 10:01 - Labs Labs: 02/09/17 06:19 02/09/17 06:19 PT 12.1 SECONDS (9.7-12.2) 02/09/17 06:19 INR 1.1 02/09/17 06:19 APTT 27 SECONDS (21-34) 02/09/17 06:19 - Constitutional Appears: Well, No Acute Distress - Head Exam Head Exam: ATRAUMATIC, NORMAL INSPECTION, NORMOCEPHALIC - Eye Exam Eye Exam: EOMI, Normal appearance, PERRL Pupil Exam: NORMAL ACCOMODATION, PERRL - ENT Exam ENT Exam: Mucous Membranes Moist - Respiratory Exam Respiratory Exam: Clear to Ausculation Bilateral, NORMAL BREATHING PATTERN - Cardiovascular Exam Cardiovascular Exam: REGULAR RHYTHM, RRR, +S1, +S2 - GI/Abdominal Exam GI & Abdominal Exam: Soft, Normal Bowel Sounds. absent: Tenderness - Extremities Exam Extremities Exam: Tenderness (right arm has tenderness when patient abducts her arm). absent: Full ROM (right arm has limited range of motion ) - Neurological Exam Neurological Exam: Alert, Awake, Oriented x3 Neuro motor strength exam: Left Upper Extremity: 5, Right Upper Extremity: 3, Left Lower Extremity: 5, Right Lower Extremity: 5 - Psychiatric Exam Psychiatric exam: Normal Affect - Skin Skin Exam: Normal Color, Warm Assessment and Plan (1) CVA (cerebral vascular accident) Assessment & Plan: Neurology consult: Dr. Cummings --> help appreciated CT of the Head: An acute or subacute brain infarction is suspected at the left basal ganglia at the posterior superior distribution. Follow-up CT or MRI is advised. No definite intracranial hemorrhage. Limited age-related diffuse cerebral atrophy. Per Dr. Zoila iniguez to start therapeutic Lovenox for atrial fibrillation Carotid doppler: Right duplex scan does not suggest hemodynamically significant stenosis; Left duplex scan does not suggest hemodynamically significant stenosis Head/Neck CTA: No significant interval change in occlusion of the distal left M1 segment likely related to thrombosis with attenuation of the M2 segments. No hemodynamicaly significant stenosis in the internal carotid arteries. Extensive calcidied atherosclerotic plaques in the left proximal internal carotid artery. ECHO 40-45% EF Patient started on Integrillin bolus and drip Started on statin f/u PT eval and treat f/u OT eval and treat f/u Speech therapy Status: Acute (2) History of atrial fibrillation Assessment & Plan: Patient was not taking any medications for her atrial fibrillation at home. Patient was given a stat one time dose of 10mg Cardizem in the ED Cardiology Consult: Dr. Laguerre --> help appreciated ICU Consult: Dr. Wiley --> help appreciated - Patient started on 5mg IVP once in the ED per Dr. Wiley - Possible need for Cardizem drip HR becomes unstable Per Dr. Zoila iniguez to start therapeutic Lovenox for atrial fibrillation - Started 70mg Lovenox Q12 Started 300mg of Aspirin Status: Acute (3) CAD (coronary artery disease) Assessment & Plan: Home medication: 40mg of Atorvastatin Status: Chronic (4) History of hypothyroidism Assessment & Plan: Home medication: 0.025mg Levothyroixine Status: Chronic <Octavio Muhammad Jr. - Last Filed: 02/12/17 13:59> Objective - Vital Signs/Intake and Output Vital Signs (last 24 hours): Temp Pulse Resp BP Pulse Ox 98.4 F 112 H 20 125/52 L 96 02/12/17 07:00 02/12/17 07:00 02/12/17 07:00 02/12/17 07:00 02/12/17 07:00 Intake and Output: 02/12/17 02/12/17 06:59 18:59 Intake Total 480 Balance 480 - Medications Medications: Current Medications Albuterol/Ipratropium (Duoneb 3 Mg/0.5 Mg (3 Ml) Ud) 3 ml INH RQ6 [facility] Last Admin: 02/12/17 13:35 Dose: Not Given Apixaban (Eliquis) 2.5 mg PO BID [facility] Last Admin: 02/12/17 10:13 Dose: 2.5 mg Aspirin (Ecotrin) 81 mg PO DAILY [facility] Last Admin: 02/12/17 10:13 Dose: 81 mg Famotidine (Pepcid) 20 mg PO DAILY [facility] Last Admin: 02/12/17 10:13 Dose: 20 mg Levothyroxine Sodium (Synthroid) 25 mcg PO DAILY@0630 [facility] Last Admin: 02/12/17 05:52 Dose: 25 mcg Magnesium Oxide (Mag-Ox) 400 mg PO BID [facility] Last Admin: 02/12/17 10:13 Dose: 400 mg Methylprednisolone (Solu-Medrol) 125 mg IV ONCE ONE Stop: 02/12/17 14:01 Metoprolol Tartrate (Lopressor) 12.5 mg PO BID PRN PRN Reason: Heart rate Last Admin: 02/12/17 10:15 Dose: 12.5 mg Nicotine (Nicoderm Cq) 1 patch TD DAILY [facility] Last Admin: 02/12/17 10:13 Dose: 1 patch Rosuvastatin Calcium (Crestor) 20 mg PO HS [facility] Last Admin: 02/11/17 21:31 Dose: 20 mg - Labs Labs: 02/12/17 07:08 02/12/17 07:08 PT 12.1 SECONDS (9.7-12.2) 02/09/17 06:19 INR 1.1 02/09/17 06:19 APTT 27 SECONDS (21-34) 02/09/17 06:19 Attending/Attestation - Attestation I have personally seen and examined this patient.: Yes I have fully participated in the care of the patient.: Yes I have reviewed all pertinent clinical information, including history, physical exam and plan: Yes Notes (Text): 02/12/17 13:59 Agree with resident note and plan of care
--- NOTE | 2017-02-09 15:07 | VASCLAB ---
PROCEDURE: HISTORY: s/p stroke COMPARISON: None available. TECHNIQUE: Grayscale and duplex Doppler evaluation of the cervical carotid and vertebral arteries were performed. The common carotid, carotid bifurcations and cervical Internal Carotid Artery (ICA) and proximal External Carotid Artery (ECA) were evaluated. The vertebral arteries were evaluated for gross patency and flow direction. Report prepared by KAILASH Evans FINDINGS: RIGHT CAROTID ARTERIES: 1. Common Carotid Artery: No significant focal plaque formation of the right common carotid artery. Maximum Peak Systolic velocity: 56 cm/sec: End-diastolic velocity 11 cm/sec. 2. Carotid Bifurcation: plaque formation. Maximum Peak Systolic velocity: 36 cm/sec: End-diastolic velocity 9 cm/sec. 3. Internal Carotid Artery: Plaque description: 3.1. Proximal Segment: Peak systolic velocity 115 cm/sec: End-diastolic velocity 27 cm/sec - % stenosis 0-15% 3.2. Middle Segment: Peak systolic velocity 66 cm/sec: End-diastolic velocity 25 cm/sec - % stenosis 0-15% 3.3. Distal Segment: Peak systolic velocity 89 cm/sec: End-diastolic velocity 24 cm/sec - % stenosis 0-15% 4. External Carotid Artery: No significant focal plaque formation. Peak systolic velocity 90 cm/sec 5. ICA/CCA Ratio: 2.1 LEFT CAROTID ARTERIES: 1. Common Carotid Artery: No significant focal plaque formation of the left common carotid artery. Maximum Peak Systolic velocity: 59 cm/sec: End-diastolic velocity 11 cm/sec. 2. Carotid Bifurcation: Calcific plaque formation. Maximum Peak Systolic velocity: 38 cm/sec: End-diastolic velocity 0 cm/sec. 3. Internal Carotid Artery: Severe plaque formation of the left proximal ICA which does not results in a hemodynamically significant stenosis. Plaque description: Calcific 3.1. Proximal Segment: Peak systolic velocity 47 cm/sec: End-diastolic velocity 14 cm/sec - % stenosis 0-15% 3.2. Middle Segment: Peak systolic velocity 46 cm/sec: End-diastolic velocity 15 cm/sec - % stenosis 0-15% 3.3. Distal Segment: Peak systolic velocity 73 cm/sec: End-diastolic velocity 11 cm/sec - % stenosis 0-15% 4. External Carotid Artery: No significant focal plaque formation. Peak systolic velocity 86 cm/sec 5. ICA/CCA Ratio: 1.2 VERTEBRAL ARTERIES: 1. Right Vertebral Artery: The right vertebral artery flow direction is antegrade. 2. Left Vertebral Artery: The left vertebral artery flow direction is antegrade. OTHER FINDINGS: 1. Right Brachial Blood pressure: 110 mmHg. 2. Left Brachial Blood pressure: mmHg. IMPRESSION: RIGHT: Duplex scan does not suggest hemodynamically significant stenosis of the right extracranial carotid arteries. LEFT: Duplex scan does not suggest hemodynamically significant stenosis of the left extracranial carotid arteries.
[2017-02-09] MEDS ORDERED: Iodixanol 320 MG/ML 100 ML BOTTLE IV ONE (16:57)
--- NOTE | 2017-02-09 17:34 | CP.CCUPN ---
<Martir Back R - Last Filed: 02/09/17 17:38> CCU Subjective - Physician Review Subjective (Free Text): Patient was seen and examined this morning at bedside. She stated that she felt well and did not have any complaints. Her facial droop had improved significantly and while she still complained of right sided UE and LE weakness, her muscle strength had improved since yesterday. She denied chest pain, shortness of breath, headache, blurry vision, worsening of neurological symptoms. 02/09/17 17:38 CCU Objective - Vital Signs / Intake & Output Intake and Output (Last 8hrs): Intake & Output 02/09/17 02/09/17 02/09/17 06:59 14:59 22:59 Intake Total 1272.4 616.8 Output Total 350 200 Balance 922.4 416.8 Weight 152 lb 1.903 oz Intake: Intake, IV Amount 1272.4 616.8 left antecubital area 22.4 16.8 left forearm 1250 600 Oral 0 0 Output: Urine 350 200 Urine, Voided 350 200 Other: # Voids Urine, Voided 1 # Bowel Movements 0 0 - Physical Exam Head: Positive for: Atraumatic Pupils: Positive for: PERRL Extroacular Muscles: Positive for: EOMI Mouth: Positive for: Moist Mucous Membranes Respiratory/Chest: Positive for: Clear to Auscultation. Negative for: Wheezes Cardiovascular: Positive for: Regular Rate and Rhythm, Normal S1, S2 Abdomen: Positive for: Normal Bowel Sounds. Negative for: Tenderness Upper Extremity: Positive for: Normal ROM (decreased range of motion in right arm) Lower Extremity: Positive for: Normal ROM (decreased range of motion in right leg) Neurological: Positive for: CN II-XII Intact, Speech Normal Psychiatric: Positive for: Alert, Oriented x 3 - Medications Active Medications: Active Medications Generic Name Dose Route Start Last Admin Trade Name Freq PRN Reason Stop Dose Admin Albuterol/Ipratropium 3 ml 02/08/17 20:00 02/09/17 13:23 Duoneb 3 Mg/0.5 Mg (3 Ml) Ud INH 3 ml RQ6 ANTIONETTE Administration Apixaban 2.5 mg 02/09/17 15:00 Eliquis PO BID ANTIONETTE Famotidine 20 mg 02/09/17 10:00 02/09/17 09:30 Pepcid IVP 20 mg DAILY ANTIONETTE Administration Sodium Chloride 1,000 mls @ 100 mls/hr 02/08/17 19:30 02/09/17 07:29 Sodium Chloride 0.9% IV 100 mls/hr .Q10H ANTIONETTE Administration Nicotine 1 patch 02/08/17 12:45 02/09/17 13:38 Nicoderm Cq TD 1 patch DAILY ANTIONETTE Administration Pneumococcal Polyvalent Vaccine 0.5 ml 02/10/17 10:00 Pneumovax 23 Vaccine IM 02/10/17 10:01 .ONCE ONE - Patient Studies Lab Studies: Lab Studies 02/09/17 02/09/17 02/09/17 Range/Units 16:06 11:11 07:08 WBC (4.8-10.8) K/uL RBC (3.80-5.20) Mil/uL Hgb (11.0-16.0) g/dL Hct (34.0-47.0) % MCV (81.0-99.0) fL MCH (27.0-31.0) pg MCHC (33.0-37.0) g/dL RDW (11.5-14.5) % Plt Count (130-400) K/uL MPV (7.2-11.7) fL Neut % (Auto) (50.0-75.0) % Lymph % (Auto) (20.0-40.0) % Glasscock % (Auto) (0.0-10.0) % Eos % (Auto) (0.0-4.0) % Baso % (Auto) (0.0-2.0) % Neut # (1.8-7.0) K/uL Lymph # (1.0-4.3) K/uL Glasscock # (0.0-0.8) K/uL Eos # (0.0-0.7) K/uL Baso # (0.0-0.2) K/uL PT (9.7-12.2) SECONDS INR APTT (21-34) SECONDS Sodium (132-148) mmol/L Potassium (3.6-5.2) mmol/L Chloride (98-107) mmol/L Carbon Dioxide (22-30) mmol/L Anion Gap (10-20) BUN (7-17) mg/dL Creatinine (0.7-1.2) MG/DL Est GFR ( Amer) Est GFR (Non-Af Amer) POC Glucose (mg/dL) 97 102 89 (65-110) mg/dL Random Glucose (65-105) mg/dL Calcium (8.6-10.4) mg/dl Phosphorus (2.5-4.5) mg/dL Magnesium (1.6-2.3) mg/dL Total Bilirubin (0.2-1.3) mg/dL AST (14-36) U/L ALT (9-52) U/L Alkaline Phosphatase (38-126) U/L Total Protein (6.3-8.3) g/dL Albumin (3.5-5.0) g/dL Globulin (2.2-3.9) gm/dL Albumin/Globulin Ratio (1.0-2.1) Thyroxine (T4) (5.5-11.0) ug/dL TSH 3rd Generation (0.46-4.68) mIU/L 02/09/17 02/09/17 02/09/17 Range/Units 06:19 06:19 06:19 WBC (4.8-10.8) K/uL RBC (3.80-5.20) Mil/uL Hgb (11.0-16.0) g/dL Hct (34.0-47.0) % MCV (81.0-99.0) fL MCH (27.0-31.0) pg MCHC (33.0-37.0) g/dL RDW (11.5-14.5) % Plt Count (130-400) K/uL MPV (7.2-11.7) fL Neut % (Auto) (50.0-75.0) % Lymph % (Auto) (20.0-40.0) % Glasscock % (Auto) (0.0-10.0) % Eos % (Auto) (0.0-4.0) % Baso % (Auto) (0.0-2.0) % Neut # (1.8-7.0) K/uL Lymph # (1.0-4.3) K/uL Glasscock # (0.0-0.8) K/uL Eos # (0.0-0.7) K/uL Baso # (0.0-0.2) K/uL PT 12.1 (9.7-12.2) SECONDS INR 1.1 APTT 27 (21-34) SECONDS Sodium 140 (132-148) mmol/L Potassium 3.9 (3.6-5.2) mmol/L Chloride 106 (98-107) mmol/L Carbon Dioxide 25 (22-30) mmol/L Anion Gap 13 (10-20) BUN 15 (7-17) mg/dL Creatinine 0.8 (0.7-1.2) MG/DL Est GFR ( Amer) > 60 Est GFR (Non-Af Amer) > 60 POC Glucose (mg/dL) (65-110) mg/dL Random Glucose 92 (65-105) mg/dL Calcium 8.7 (8.6-10.4) mg/dl Phosphorus 3.1 (2.5-4.5) mg/dL Magnesium 1.8 (1.6-2.3) mg/dL Total Bilirubin 0.7 (0.2-1.3) mg/dL AST 30 (14-36) U/L ALT 36 (9-52) U/L Alkaline Phosphatase 43 (38-126) U/L Total Protein 6.0 L (6.3-8.3) g/dL Albumin 3.1 L D (3.5-5.0) g/dL Globulin 2.9 (2.2-3.9) gm/dL Albumin/Globulin Ratio 1.1 (1.0-2.1) Thyroxine (T4) 6.69 (5.5-11.0) ug/dL TSH 3rd Generation 3.46 (0.46-4.68) mIU/L 02/09/17 02/08/17 Range/Units 06:19 23:06 WBC 6.8 (4.8-10.8) K/uL RBC 3.23 L (3.80-5.20) Mil/uL Hgb 11.6 D (11.0-16.0) g/dL Hct 34.3 (34.0-47.0) % MCV 106.1 H (81.0-99.0) fL MCH 36.0 H (27.0-31.0) pg MCHC 33.9 (33.0-37.0) g/dL RDW 12.9 (11.5-14.5) % Plt Count 133 (130-400) K/uL MPV 7.8 (7.2-11.7) fL Neut % (Auto) 74.5 (50.0-75.0) % Lymph % (Auto) 16.8 L (20.0-40.0) % Glasscock % (Auto) 8.6 (0.0-10.0) % Eos % (Auto) 0.1 (0.0-4.0) % Baso % (Auto) 0.0 (0.0-2.0) % Neut # 5.1 (1.8-7.0) K/uL Lymph # 1.1 (1.0-4.3) K/uL Glasscock # 0.6 (0.0-0.8) K/uL Eos # 0.0 (0.0-0.7) K/uL Baso # 0.0 (0.0-0.2) K/uL PT (9.7-12.2) SECONDS INR APTT (21-34) SECONDS Sodium (132-148) mmol/L Potassium (3.6-5.2) mmol/L Chloride (98-107) mmol/L Carbon Dioxide (22-30) mmol/L Anion Gap (10-20) BUN (7-17) mg/dL Creatinine (0.7-1.2) MG/DL Est GFR ( Amer) Est GFR (Non-Af Amer) POC Glucose (mg/dL) 74 (65-110) mg/dL Random Glucose (65-105) mg/dL Calcium (8.6-10.4) mg/dl Phosphorus (2.5-4.5) mg/dL Magnesium (1.6-2.3) mg/dL Total Bilirubin (0.2-1.3) mg/dL AST (14-36) U/L ALT (9-52) U/L Alkaline Phosphatase (38-126) U/L Total Protein (6.3-8.3) g/dL Albumin (3.5-5.0) g/dL Globulin (2.2-3.9) gm/dL Albumin/Globulin Ratio (1.0-2.1) Thyroxine (T4) (5.5-11.0) ug/dL TSH 3rd Generation (0.46-4.68) mIU/L Laboratory Results - last 24 hr 02/08/17 02/09/17 02/09/17 23:06 06:19 06:19 WBC 6.8 RBC 3.23 L Hgb 11.6 D Hct 34.3 MCV 106.1 H MCH 36.0 H MCHC 33.9 RDW 12.9 Plt Count 133 MPV 7.8 Neut % (Auto) 74.5 Lymph % (Auto) 16.8 L Glasscock % (Auto) 8.6 Eos % (Auto) 0.1 Baso % (Auto) 0.0 Neut # 5.1 Lymph # 1.1 Glasscock # 0.6 Eos # 0.0 Baso # 0.0 PT 12.1 INR 1.1 APTT 27 Sodium Potassium Chloride Carbon Dioxide Anion Gap BUN Creatinine Est GFR ( Amer) Est GFR (Non-Af Amer) POC Glucose (mg/dL) 74 Random Glucose Calcium Phosphorus Magnesium Total Bilirubin AST ALT Alkaline Phosphatase Total Protein Albumin Globulin Albumin/Globulin Ratio Thyroxine (T4) TSH 3rd Generation 02/09/17 02/09/17 02/09/17 06:19 06:19 07:08 WBC RBC Hgb Hct MCV MCH MCHC RDW Plt Count MPV Neut % (Auto) Lymph % (Auto) Glasscock % (Auto) Eos % (Auto) Baso % (Auto) Neut # Lymph # Glasscock # Eos # Baso # PT INR APTT Sodium 140 Potassium 3.9 Chloride 106 Carbon Dioxide 25 Anion Gap 13 BUN 15 Creatinine 0.8 Est GFR ( Amer) > 60 Est GFR (Non-Af Amer) > 60 POC Glucose (mg/dL) 89 Random Glucose 92 Calcium 8.7 Phosphorus 3.1 Magnesium 1.8 Total Bilirubin 0.7 AST 30 ALT 36 Alkaline Phosphatase 43 Total Protein 6.0 L Albumin 3.1 L D Globulin 2.9 Albumin/Globulin Ratio 1.1 Thyroxine (T4) 6.69 TSH 3rd Generation 3.46 02/09/17 02/09/17 11:11 16:06 WBC RBC Hgb Hct MCV MCH MCHC RDW Plt Count MPV Neut % (Auto) Lymph % (Auto) Glasscock % (Auto) Eos % (Auto) Baso % (Auto) Neut # Lymph # Glasscock # Eos # Baso # PT INR APTT Sodium Potassium Chloride Carbon Dioxide Anion Gap BUN Creatinine Est GFR ( Amer) Est GFR (Non-Af Amer) POC Glucose (mg/dL) 102 97 Random Glucose Calcium Phosphorus Magnesium Total Bilirubin AST ALT Alkaline Phosphatase Total Protein Albumin Globulin Albumin/Globulin Ratio Thyroxine (T4) TSH 3rd Generation Fingerstick Blood Sugar Results: 102 Review of Systems - Constitutional Constitutional: Weakness (right sided weakness). absent: Fever, Chills, Sweats - Cardiovascular Cardiovascular: absent: Chest Pain, Diaphoresis, Dyspnea - Respiratory Respiratory: absent: Cough, Wheezing - Gastrointestinal Gastrointestinal: absent: Abdominal Pain, Constipation, Diarrhea - Genitourinary Genitourinary: absent: Difficulty Urinating - Musculoskeletal Musculoskeletal: Limited Range of Motion (right sided weakness) - Neurological Neurological: Abnormal Speech, Focal Weakness, Weakness. absent: Loss of Vision , Tingling Critical Care Progress Note - Nutrition Nutrition: Nutrition Category Date Time Status Dysphagia/Modified Consistency Diet [DIET] Diets 02/09/17 Lunch Active Assessment/Plan - Assessment and Plan (Free Text) Assessment: Assessment: * Left MCA infarct with residual distal thrombus; right sided weakness improved , facial droop improved * New on set afib with rvr, with spontaneous conversion to the sinus * Lower side bp * Tobacco abuse Plan: * CTA done today 02/09/17, follow up official read. * repeat CT head w/out contrast * aspirin 81mg if no hemorrhagic conversion on repeat CT head w/out contrast * Integrillin bolus, and drip for 16 hours, then give 2.5mg eliquis q12 * bubble study today 02/09/17 * LASHAWN/TTE scheduled tentatively for 02/13/17 * Rate rhythm control * NS 100ml/hr * Aspiration precautions, as patient does not have good gag * Therapeutic anticoagulation as new stroke with afib * speech swallow eval, pt/ot * Maintain euglycemia * Q1h neurocheck, monitor in icu * GI/DVT prophylaxis * See orders for detail. <Ronnie Zavala - Last Filed: 02/09/17 19:06> CCU Objective - Vital Signs / Intake & Output Vital Signs (Last 4 hours): Vital Signs Temp 02/09/17 16:00 98.9 F Intake and Output (Last 8hrs): Intake & Output 02/09/17 02/09/17 02/09/17 06:59 14:59 22:59 Intake Total 1272.4 739.6 405.6 Output Total 350 400 Balance 922.4 339.6 405.6 Weight 152 lb 1.903 oz Intake: Intake, IV Amount 1272.4 719.6 405.6 left antecubital area 22.4 19.6 5.6 left forearm 1250 700 400 Oral 0 20 0 Output: Urine 350 400 Urine, Voided 350 400 Other: # Voids Urine, Voided 1 # Bowel Movements 0 0 - Medications Active Medications: Active Medications Generic Name Dose Route Start Last Admin Trade Name Freq PRN Reason Stop Dose Admin Albuterol/Ipratropium 3 ml 02/08/17 20:00 02/09/17 13:23 Duoneb 3 Mg/0.5 Mg (3 Ml) Ud INH 3 ml RQ6 ANTIONETTE Administration Apixaban 2.5 mg 02/09/17 15:00 02/09/17 17:39 Eliquis PO 2.5 mg BID ANTIONETTE Administration Aspirin 81 mg 02/10/17 10:00 Ecotrin PO DAILY ANTIONETTE Famotidine 20 mg 02/09/17 10:00 02/09/17 09:30 Pepcid IVP 20 mg DAILY ANTIONETTE Administration Sodium Chloride 1,000 mls @ 100 mls/hr 02/08/17 19:30 02/09/17 18:26 Sodium Chloride 0.9% IV 100 mls/hr .Q10H ANTIONETTE Administration Levothyroxine Sodium 0.025 mcg 02/10/17 06:30 Synthroid PO DAILY@0630 ANTIONETTE Nicotine 1 patch 02/08/17 12:45 02/09/17 13:38 Nicoderm Cq TD 1 patch DAILY ANTIONETTE Administration Pneumococcal Polyvalent Vaccine 0.5 ml 02/10/17 10:00 Pneumovax 23 Vaccine IM 02/10/17 10:01 .ONCE ONE Rosuvastatin Calcium 20 mg 02/09/17 22:00 Crestor PO HS ANTIONETTE - Patient Studies Lab Studies: Lab Studies 02/09/17 02/09/17 02/09/17 Range/Units 16:06 11:11 07:08 WBC (4.8-10.8) K/uL RBC (3.80-5.20) Mil/uL Hgb (11.0-16.0) g/dL Hct (34.0-47.0) % MCV (81.0-99.0) fL MCH (27.0-31.0) pg MCHC (33.0-37.0) g/dL RDW (11.5-14.5) % Plt Count (130-400) K/uL MPV (7.2-11.7) fL Neut % (Auto) (50.0-75.0) % Lymph % (Auto) (20.0-40.0) % Glasscock % (Auto) (0.0-10.0) % Eos % (Auto) (0.0-4.0) % Baso % (Auto) (0.0-2.0) % Neut # (1.8-7.0) K/uL Lymph # (1.0-4.3) K/uL [place] # (0.0-0.8) K/uL Eos # (0.0-0.7) K/uL Baso # (0.0-0.2) K/uL PT (9.7-12.2) SECONDS INR APTT (21-34) SECONDS Sodium (132-148) mmol/L Potassium (3.6-5.2) mmol/L Chloride (98-107) mmol/L Carbon Dioxide (22-30) mmol/L Anion Gap (10-20) BUN (7-17) mg/dL Creatinine (0.7-1.2) MG/DL Est GFR ( Amer) Est GFR (Non-Af Amer) POC Glucose (mg/dL) 97 102 89 (65-110) mg/dL Random Glucose (65-105) mg/dL Calcium (8.6-10.4) mg/dl Phosphorus (2.5-4.5) mg/dL Magnesium (1.6-2.3) mg/dL Total Bilirubin (0.2-1.3) mg/dL AST (14-36) U/L ALT (9-52) U/L Alkaline Phosphatase (38-126) U/L Total Protein (6.3-8.3) g/dL Albumin (3.5-5.0) g/dL Globulin (2.2-3.9) gm/dL Albumin/Globulin Ratio (1.0-2.1) Thyroxine (T4) (5.5-11.0) ug/dL TSH 3rd Generation (0.46-4.68) mIU/L 02/09/17 02/09/17 02/09/17 Range/Units 06:19 06:19 06:19 WBC (4.8-10.8) K/uL RBC (3.80-5.20) Mil/uL Hgb (11.0-16.0) g/dL Hct (34.0-47.0) % MCV (81.0-99.0) fL MCH (27.0-31.0) pg MCHC (33.0-37.0) g/dL RDW (11.5-14.5) % Plt Count (130-400) K/uL MPV (7.2-11.7) fL Neut % (Auto) (50.0-75.0) % Lymph % (Auto) (20.0-40.0) % Glasscock % (Auto) (0.0-10.0) % Eos % (Auto) (0.0-4.0) % Baso % (Auto) (0.0-2.0) % Neut # (1.8-7.0) K/uL Lymph # (1.0-4.3) K/uL [place]cock # (0.0-0.8) K/uL Eos # (0.0-0.7) K/uL Baso # (0.0-0.2) K/uL PT 12.1 (9.7-12.2) SECONDS INR 1.1 APTT 27 (21-34) SECONDS Sodium 140 (132-148) mmol/L Potassium 3.9 (3.6-5.2) mmol/L Chloride 106 (98-107) mmol/L Carbon Dioxide 25 (22-30) mmol/L Anion Gap 13 (10-20) BUN 15 (7-17) mg/dL Creatinine 0.8 (0.7-1.2) MG/DL Est GFR ( Amer) > 60 Est GFR (Non-Af Amer) > 60 POC Glucose (mg/dL) (65-110) mg/dL Random Glucose 92 (65-105) mg/dL Calcium 8.7 (8.6-10.4) mg/dl Phosphorus 3.1 (2.5-4.5) mg/dL Magnesium 1.8 (1.6-2.3) mg/dL Total Bilirubin 0.7 (0.2-1.3) mg/dL AST 30 (14-36) U/L ALT 36 (9-52) U/L Alkaline Phosphatase 43 (38-126) U/L Total Protein 6.0 L (6.3-8.3) g/dL Albumin 3.1 L D (3.5-5.0) g/dL Globulin 2.9 (2.2-3.9) gm/dL Albumin/Globulin Ratio 1.1 (1.0-2.1) Thyroxine (T4) 6.69 (5.5-11.0) ug/dL TSH 3rd Generation 3.46 (0.46-4.68) mIU/L 02/09/17 02/08/17 Range/Units 06:19 23:06 WBC 6.8 (4.8-10.8) K/uL RBC 3.23 L (3.80-5.20) Mil/uL Hgb 11.6 D (11.0-16.0) g/dL Hct 34.3 (34.0-47.0) % MCV 106.1 H (81.0-99.0) fL MCH 36.0 H (27.0-31.0) pg MCHC 33.9 (33.0-37.0) g/dL RDW 12.9 (11.5-14.5) % Plt Count 133 (130-400) K/uL MPV 7.8 (7.2-11.7) fL Neut % (Auto) 74.5 (50.0-75.0) % Lymph % (Auto) 16.8 L (20.0-40.0) % Glasscock % (Auto) 8.6 (0.0-10.0) % Eos % (Auto) 0.1 (0.0-4.0) % Baso % (Auto) 0.0 (0.0-2.0) % Neut # 5.1 (1.8-7.0) K/uL Lymph # 1.1 (1.0-4.3) K/uL Glasscock # 0.6 (0.0-0.8) K/uL Eos # 0.0 (0.0-0.7) K/uL Baso # 0.0 (0.0-0.2) K/uL PT (9.7-12.2) SECONDS INR APTT (21-34) SECONDS Sodium (132-148) mmol/L Potassium (3.6-5.2) mmol/L Chloride (98-107) mmol/L Carbon Dioxide (22-30) mmol/L Anion Gap (10-20) BUN (7-17) mg/dL Creatinine (0.7-1.2) MG/DL Est GFR ( Amer) Est GFR (Non-Af Amer) POC Glucose (mg/dL) 74 (65-110) mg/dL Random Glucose (65-105) mg/dL Calcium (8.6-10.4) mg/dl Phosphorus (2.5-4.5) mg/dL Magnesium (1.6-2.3) mg/dL Total Bilirubin (0.2-1.3) mg/dL AST (14-36) U/L ALT (9-52) U/L Alkaline Phosphatase (38-126) U/L Total Protein (6.3-8.3) g/dL Albumin (3.5-5.0) g/dL Globulin (2.2-3.9) gm/dL Albumin/Globulin Ratio (1.0-2.1) Thyroxine (T4) (5.5-11.0) ug/dL TSH 3rd Generation (0.46-4.68) mIU/L Laboratory Results - last 24 hr 02/08/17 02/09/17 02/09/17 23:06 06:19 06:19 WBC 6.8 RBC 3.23 L Hgb 11.6 D Hct 34.3 MCV 106.1 H MCH 36.0 H MCHC 33.9 RDW 12.9 Plt Count 133 MPV 7.8 Neut % (Auto) 74.5 Lymph % (Auto) 16.8 L [place]cock % (Auto) 8.6 Eos % (Auto) 0.1 Baso % (Auto) 0.0 Neut # 5.1 Lymph # 1.1 Glasscock # 0.6 Eos # 0.0 Baso # 0.0 PT 12.1 INR 1.1 APTT 27 Sodium Potassium Chloride Carbon Dioxide Anion Gap BUN Creatinine Est GFR ( Amer) Est GFR (Non-Af Amer) POC Glucose (mg/dL) 74 Random Glucose Calcium Phosphorus Magnesium Total Bilirubin AST ALT Alkaline Phosphatase Total Protein Albumin Globulin Albumin/Globulin Ratio Thyroxine (T4) TSH 3rd Generation 02/09/17 02/09/17 02/09/17 06:19 06:19 07:08 WBC RBC Hgb Hct MCV MCH MCHC RDW Plt Count MPV Neut % (Auto) Lymph % (Auto) [place]cock % (Auto) Eos % (Auto) Baso % (Auto) Neut # Lymph # [place]cock # Eos # Baso # PT INR APTT Sodium 140 Potassium 3.9 Chloride 106 Carbon Dioxide 25 Anion Gap 13 BUN 15 Creatinine 0.8 Est GFR ( Amer) > 60 Est GFR (Non-Af Amer) > 60 POC Glucose (mg/dL) 89 Random Glucose 92 Calcium 8.7 Phosphorus 3.1 Magnesium 1.8 Total Bilirubin 0.7 AST 30 ALT 36 Alkaline Phosphatase 43 Total Protein 6.0 L Albumin 3.1 L D Globulin 2.9 Albumin/Globulin Ratio 1.1 Thyroxine (T4) 6.69 TSH 3rd Generation 3.46 02/09/17 02/09/17 11:11 16:06 WBC RBC Hgb Hct MCV MCH MCHC RDW Plt Count MPV Neut % (Auto) Lymph % (Auto) [place]cock % (Auto) Eos % (Auto) Baso % (Auto) Neut # Lymph # [place]cock # Eos # Baso # PT INR APTT Sodium Potassium Chloride Carbon Dioxide Anion Gap BUN Creatinine Est GFR ( Amer) Est GFR (Non-Af Amer) POC Glucose (mg/dL) 102 97 Random Glucose Calcium Phosphorus Magnesium Total Bilirubin AST ALT Alkaline Phosphatase Total Protein Albumin Globulin Albumin/Globulin Ratio Thyroxine (T4) [facility] 3rd Generation Critical Care Progress Note - Nutrition Nutrition: Nutrition Category Date Time Status Dysphagia/Modified Consistency Diet [DIET] Diets 02/09/17 Lunch Active Attending/Attestation - Attestation I have personally seen and examined this patient.: Yes I have fully participated in the care of the patient.: Yes I have reviewed all pertinent clinical information: Yes Notes (Text): 02/09/17 19:05 I have seen and examined the patient. Medical records, lab studies, and imaging were reviewed by me and a management plan was formulated on multidisciplinary rounds with resident Dr. Mcmahan. I agree with their above documented assessment and plan. Patient showed significant clinical improvement after integrillin drip started. Modest radiographic improvement on CTA. Started on Eliquis and ASA for senior care stroke prophylaxis. Critical Care Time 35 minutes. Multi-disciplinary rounds were performed with house staff, nursing, speech therapy, respiratory therapy, pharmacy and nutrition with integrated input from the primary team/attending and other consulting services. The documented time is cumulative and includes review of patient data/exams/labs/chart review and examination of the patient on rounds and throughout the day; time is exclusive of any procedures or teaching time.
--- NOTE | 2017-02-09 18:11 | CT ---
PROCEDURE: CTA HEAD AND NECK WITH CONTRAST HISTORY: status of cerebral vascular flow COMPARISON: 02/08/2017 TECHNIQUE: Initial noncontrast head CT was performed. Subsequently, CT angiogram of the head and neck were performed after the intravenous administration of 80 mL of Omnipaque 350. Contiguous 1.5mm thick images were obtained in the axial plane of the neck. 2-D coronal and sagittal MPR images were obtained. Imaging postprocessing was performed with 3-D images also obtained. A delayed contrast head CT was also obtained. This CT exam was performed using one or more of the following dose reduction techniques: Automated exposure control, adjustment of the mA and/or kV according to patient size, and/or use of iterative reconstruction technique. Contrast dose: 100 mL Visipaque Radiation dose: Total exam DLP = 1724.31 mGy-cm. FINDINGS: HEAD: Noncontrast head CT: There is interval evolution of left basal ganglia with interval increase in size of the infarction. There is also low attenuation in the anterior limb of the internal capsule which could represent edema or ischemia. Right: The intracranial internal carotid artery, and anterior and middle cerebral arteries are widely patent. Left: There is redemonstration of irregularity and occlusion of the distal M1 segment with attenuation of the M2 branches. The intracranial internal carotid artery, and anterior cerebral arteries are widely patent. Posterior circulation: The visualized intracranial vertebral arteries, basilar artery and posterior cerebral arteries are widely patent. There is no intracranial saccular aneurysm. There is no abnormal enhancement on the postcontrast CT. NECK: There is a three vessel aortic arch. There is no stenosis at the origins of the great vessels at the level of the aortic arch. Right Carotid: On the right, the common carotid, internal carotid and external carotid arteries are widely patent. There are mild atherosclerotic calcifications in the distal common carotid and proximal internal carotid arteries. There is no hemodynamically significant stenosis in the internal carotid arteries. Left Carotid: On the left, the common carotid, internal carotid and external carotid arteries are widely patent.There is no hemodynamically significant stenosis in the internal carotid arteries. There are extensive calcified atherosclerotic plaques in the proximal internal carotid artery. The vertebral arteries are widely patent. The right vertebral artery is hypoplastic, an anatomic variant. IMPRESSION: 1. No significant interval change in occlusion of the distal left M1 segment likely related to thrombosis with attenuation of the M2 segments. 2. No hemodynamically significant stenosis in the internal carotid arteries. Extensive calcified atherosclerotic plaques in the left proximal internal carotid artery.
[2017-02-10] MEDS: Albuterol-Ipratrop 3 mg / 0.5 (3 ml) UD INH SCH ×2 (01:08→07:25)
[2017-02-10] MEDS: Sodium Chloride 0.9% 1,000 ML IV SCH ×2 (01:30→06:09)
[2017-02-10 06:21] LABS: BASO % 0.2 % (0.0-2.0); EOS % 0.2 % (0.0-4.0); HEMATOCRIT 32.2 % (34.0-47.0); LYMPH # 0.9 K/uL (1.0-4.3); LYMPH % 14.6 % (20.0-40.0); MEAN CELL VOLUME 105.7 fL (81.0-99.0); MEAN CORPUSCULAR HEMOGLOBIN 35.6 pg (27.0-31.0); MEAN CORPUSCULAR HGB CONC 33.7 g/dL (33.0-37.0); MEAN PLATELET VOLUME 7.7 fL (7.2-11.7); MONO # 0.5 K/uL (0.0-0.8); MONO % 8.8 % (0.0-10.0); RED CELL DISTRIBUTION WIDTH 12.7 % (11.5-14.5); WHITE BLOOD COUNT 5.9 K/uL (4.8-10.8)
[2017-02-10] MEDS: Levothyroxine 25 MCG TAB PO SCH (06:27)
[2017-02-10] MEDS ORDERED: Levothyroxine 25 MCG TAB PO SCH (06:30)
[2017-02-10 06:51] LABS: ALB/GLOB RATIO 1.2 (1.0-2.1); ALKALINE PHOSPHATASE 30 U/L (38-126); ALT/SGPT 33 U/L (9-52); AST/SGOT 29 U/L (14-36); BILIRUBIN,TOTAL 0.6 mg/dL (0.2-1.3); BLOOD UREA NITROGEN 9 mg/dL (7-17); CALCIUM 8.5 mg/dl (8.6-10.4); CARBON DIOXIDE 25 mmol/L (22-30); CHLORIDE 106 mmol/L (98-107); GLUCOSE,RANDOM 85 mg/dL (65-105); MAGNESIUM 1.8 mg/dL (1.6-2.3); PHOSPHOROUS 3.3 mg/dL (2.5-4.5); SODIUM 139 mmol/L (132-148); TOTAL PROTEIN 5.5 g/dL (6.3-8.3)
[2017-02-10 06:52] LABS: GFR AFRICAN-AMERICAN > 60
--- NOTE | 2017-02-10 09:40 | CARD ---
APPROVED REPORT EXAM: Two-dimensional and M-mode echocardiogram with Doppler and color Doppler. Other Information Quality : GoodRhythm : NSR INDICATION LIMITED BUBBLE STUDY <Conclusion> Limited ECHO for Stroke protocol: Microbubbles injected from Right Forearm IV No bubbles crossed from Right to Left Conclusion: Negative bubble study suggestive of no intracardiac Right to Left shunt
[2017-02-10] MEDS ORDERED: Pneumococcal 23-Valent Vaccine IM ONE (10:00)
[2017-02-10] MEDS ORDERED: Albuterol-Ipratrop 3 mg / 0.5 (3 ml) UD INH PRN (12:18)
[2017-02-10] MEDS: Azithromycin 500 MG in Sodium Chloride 0.9% 250 ML IVPB SCH (14:23)
--- NOTE | 2017-02-10 16:09 | CP.PCM.PN ---
<Eugenie Fisher - Last Filed: 02/10/17 20:06> Subjective - Date & Time of Evaluation Date of Evaluation: 02/10/17 Time of Evaluation: 11:00 - Subjective Subjective: Medicine Progress Note: Patient was seen and examined in the AM at bedside. Patient states her right arm is a bit painful when she abducts her arm. Patient states her slurred speech has not improved. Patient states she continue to have a cough that produces phlegm yellow in color. Patient denies any other complaints. Objective - Vital Signs/Intake and Output Vital Signs (last 24 hours): Temp Pulse Resp BP Pulse Ox 98.2 F 63 20 128/59 L 100 02/10/17 14:00 02/10/17 14:00 02/10/17 14:00 02/10/17 10:40 02/10/17 10:40 Intake and Output: 02/10/17 02/10/17 06:59 18:59 Intake Total 1370 155 Output Total 800 Balance 570 155 - Medications Medications: Current Medications Albuterol/Ipratropium (Duoneb 3 Mg/0.5 Mg (3 Ml) Ud) 3 ml INH RQ6 PRN PRN Reason: Cough Apixaban (Eliquis) 2.5 mg PO BID [facility] Last Admin: 02/10/17 12:18 Dose: 2.5 mg Aspirin (Ecotrin) 81 mg PO DAILY [facility] Last Admin: 02/10/17 12:18 Dose: 81 mg Famotidine (Pepcid) 20 mg IVP DAILY [facility] Last Admin: 02/10/17 14:22 Dose: 20 mg Azithromycin 500 mg/ Sodium (Chloride) 250 mls @ 250 mls/hr IVPB DAILY [facility] Stop: 02/14/17 12:01 Last Admin: 02/10/17 14:23 Dose: 250 mls/hr Levothyroxine Sodium (Synthroid) 25 mcg PO DAILY@0630 [facility] Last Admin: 02/10/17 06:27 Dose: 25 mcg Nicotine (Nicoderm Cq) 1 patch TD DAILY [facility] Last Admin: 02/10/17 12:18 Dose: 1 patch Rosuvastatin Calcium (Crestor) 20 mg PO HS [facility] Last Admin: 02/09/17 21:11 Dose: 20 mg - Labs Labs: 02/10/17 06:13 02/10/17 06:14 PT 12.1 SECONDS (9.7-12.2) 02/09/17 06:19 INR 1.1 02/09/17 06:19 APTT 27 SECONDS (21-34) 02/09/17 06:19 - Constitutional Appears: No Acute Distress - Head Exam Head Exam: ATRAUMATIC, NORMAL INSPECTION, NORMOCEPHALIC - Eye Exam Eye Exam: EOMI, Normal appearance, PERRL Pupil Exam: NORMAL ACCOMODATION - ENT Exam ENT Exam: Mucous Membranes Moist Additional comments: right facial droop - Respiratory Exam Respiratory Exam: Clear to Ausculation Bilateral, NORMAL BREATHING PATTERN - Cardiovascular Exam Cardiovascular Exam: REGULAR RHYTHM, RRR, +S1, +S2 - GI/Abdominal Exam GI & Abdominal Exam: Soft, Normal Bowel Sounds. absent: Tenderness - Extremities Exam Extremities Exam: Normal Inspection, Tenderness (right upper extremity is tender during abduction ). absent: Full ROM (decreased right upper extremity range of motion) - Neurological Exam Neurological Exam: Alert, Awake, Oriented x3 - Psychiatric Exam Psychiatric exam: Normal Affect, Normal Mood - Skin Skin Exam: Normal Color, Warm Assessment and Plan (1) CVA (cerebral vascular accident) Assessment & Plan: Neurology consult: Dr. uCmmings --> help appreciated CT of the Head: An acute or subacute brain infarction is suspected at the left basal ganglia at the posterior superior distribution. Follow-up CT or MRI is advised. No definite intracranial hemorrhage. Limited age-related diffuse cerebral atrophy. Per Dr. Zoila iniguez to start therapeutic Lovenox for atrial fibrillation Carotid doppler: Right duplex scan does not suggest hemodynamically significant stenosis; Left duplex scan does not suggest hemodynamically significant stenosis Head/Neck CTA: No significant interval change in occlusion of the distal left M1 segment likely related to thrombosis with attenuation of the M2 segments. No hemodynamicaly significant stenosis in the internal carotid arteries. Extensive calcified atherosclerotic plaques in the left proximal internal carotid artery. ECHO 40-45% EF Eliquis 2.5mg PO BID Rosuvastatin 20mg PO HS f/u PT eval and treat f/u OT eval and treat f/u Speech therapy Status: Acute (2) History of atrial fibrillation Assessment & Plan: Patient was not taking any medications for her atrial fibrillation at home. Patient was given a stat one time dose of 10mg Cardizem in the ED Cardiology Consult: Dr. Laguerre --> help appreciated ICU Consult: Dr. Wiley --> help appreciated Per Dr. Zoila iniguez to start therapeutic Lovenox for atrial fibrillation Eliquis 2.5mg PO BID Aspirin 81mg PO Daily Status: Acute (3) CAD (coronary artery disease) Assessment & Plan: 40mg of Atorvastatin Status: Chronic (4) History of hypothyroidism Assessment & Plan: 0.025mg Levothyroixine Status: Chronic <Octavio Muhammad Jr. - Last Filed: 02/12/17 14:09> Objective - Vital Signs/Intake and Output Vital Signs (last 24 hours): Temp Pulse Resp BP Pulse Ox 98.4 F 112 H 20 125/52 L 96 02/12/17 07:00 02/12/17 07:00 02/12/17 07:00 02/12/17 07:00 02/12/17 07:00 Intake and Output: 02/12/17 02/12/17 06:59 18:59 Intake Total 480 Balance 480 - Medications Medications: Current Medications Albuterol/Ipratropium (Duoneb 3 Mg/0.5 Mg (3 Ml) Ud) 3 ml INH RQ6 [facility] Last Admin: 02/12/17 13:35 Dose: Not Given Apixaban (Eliquis) 2.5 mg PO BID [facility] Last Admin: 02/12/17 10:13 Dose: 2.5 mg Aspirin (Ecotrin) 81 mg PO DAILY [facility] Last Admin: 02/12/17 10:13 Dose: 81 mg Famotidine (Pepcid) 20 mg PO DAILY [facility] Last Admin: 02/12/17 10:13 Dose: 20 mg Levothyroxine Sodium (Synthroid) 25 mcg PO DAILY@0630 [facility] Last Admin: 02/12/17 05:52 Dose: 25 mcg Magnesium Oxide (Mag-Ox) 400 mg PO BID [facility] Last Admin: 02/12/17 10:13 Dose: 400 mg Metoprolol Tartrate (Lopressor) 12.5 mg PO BID PRN PRN Reason: Heart rate Last Admin: 02/12/17 10:15 Dose: 12.5 mg Nicotine (Nicoderm Cq) 1 patch TD DAILY [facility] Last Admin: 02/12/17 10:13 Dose: 1 patch Rosuvastatin Calcium (Crestor) 20 mg PO HS [facility] Last Admin: 02/11/17 21:31 Dose: 20 mg - Labs Labs: 02/12/17 07:08 02/12/17 07:08 PT 12.1 SECONDS (9.7-12.2) 02/09/17 06:19 INR 1.1 02/09/17 06:19 APTT 27 SECONDS (21-34) 02/09/17 06:19 Attending/Attestation - Attestation I have personally seen and examined this patient.: Yes I have fully participated in the care of the patient.: Yes I have reviewed all pertinent clinical information, including history, physical exam and plan: Yes Notes (Text): 02/12/17 14:09 Agree with resident note and plan of care
--- NOTE | 2017-02-10 17:36 | CP.PCM.PN ---
Subjective - Date & Time of Evaluation Date of Evaluation: 02/10/17 Time of Evaluation: 17:33 - Subjective Subjective: Mrs. Reyes was seen and examined at bedside today. She continues to show signs of improvement with regard to her stroke symptoms. There were no acute events overnight. Objective - Vital Signs/Intake and Output Vital Signs (last 24 hours): Temp Pulse Resp BP Pulse Ox 98.2 F 64 20 119/65 97 02/10/17 16:15 02/10/17 16:15 02/10/17 16:15 02/10/17 16:15 02/10/17 16:15 Intake and Output: 02/10/17 02/10/17 06:59 18:59 Intake Total 1370 155 Output Total 800 Balance 570 155 - Medications Medications: Current Medications Albuterol/Ipratropium (Duoneb 3 Mg/0.5 Mg (3 Ml) Ud) 3 ml INH RQ6 PRN PRN Reason: Cough Apixaban (Eliquis) 2.5 mg PO BID [facility] Last Admin: 02/10/17 12:18 Dose: 2.5 mg Aspirin (Ecotrin) 81 mg PO DAILY [facility] Last Admin: 02/10/17 12:18 Dose: 81 mg Famotidine (Pepcid) 20 mg IVP DAILY [facility] Last Admin: 02/10/17 14:22 Dose: 20 mg Azithromycin 500 mg/ Sodium (Chloride) 250 mls @ 250 mls/hr IVPB DAILY [facility] Stop: 02/14/17 12:01 Last Admin: 02/10/17 14:23 Dose: 250 mls/hr Levothyroxine Sodium (Synthroid) 25 mcg PO DAILY@0630 [facility] Last Admin: 02/10/17 06:27 Dose: 25 mcg Nicotine (Nicoderm Cq) 1 patch TD DAILY [facility] Last Admin: 02/10/17 12:18 Dose: 1 patch Rosuvastatin Calcium (Crestor) 20 mg PO HS [facility] Last Admin: 02/09/17 21:11 Dose: 20 mg - Labs Labs: 02/10/17 06:13 02/10/17 06:14 PT 12.1 SECONDS (9.7-12.2) 02/09/17 06:19 INR 1.1 02/09/17 06:19 APTT 27 SECONDS (21-34) 02/09/17 06:19 - Neurological Exam Neurological Exam: Altered, Awake, CN II-XII Intact Neuro motor strength exam: Left Upper Extremity: 5, Right Upper Extremity: 4, Left Lower Extremity: 4, Right Lower Extremity: 4 Additional comments: Right facial droop noted. NIHSS= 4 Assessment and Plan (1) CVA (cerebral vascular accident) Assessment & Plan: Continue Eliquis 2.5 mg and Aspirin 81 mg for secondary stroke prevention. PT/ OT eval and treat. Continue fluids as needed. Will follow along with the primary team. Status: Acute
[2017-02-10] MEDS ORDERED: Digoxin 500 mcg/2ml (0.5 mg/2ml) Inj IVP ONE (21:15)
--- NOTE | 2017-02-10 21:35 | CP.PCM.PN ---
Subjective - Date & Time of Evaluation Date of Evaluation: 02/10/17 Time of Evaluation: 11:05 - Subjective Subjective: Patient seen and evaluated in ICU Denies chest pain and dyspnea Patient says feeling better Objective - Vital Signs/Intake and Output Vital Signs (last 24 hours): Temp Pulse Resp BP Pulse Ox 98.9 F 140 H 20 110/73 96 02/10/17 20:35 02/10/17 20:35 02/10/17 20:35 02/10/17 20:35 02/10/17 20:35 Intake and Output: 02/10/17 02/11/17 18:59 06:59 Intake Total 155 Balance 155 - Medications Medications: Current Medications Albuterol/Ipratropium (Duoneb 3 Mg/0.5 Mg (3 Ml) Ud) 3 ml INH RQ6 PRN PRN Reason: Cough Apixaban (Eliquis) 2.5 mg PO BID [facility] Last Admin: 02/10/17 19:31 Dose: 2.5 mg Aspirin (Ecotrin) 81 mg PO DAILY [facility] Last Admin: 02/10/17 12:18 Dose: 81 mg Famotidine (Pepcid) 20 mg IVP DAILY [facility] Last Admin: 02/10/17 14:22 Dose: 20 mg Azithromycin 500 mg/ Sodium (Chloride) 250 mls @ 250 mls/hr IVPB DAILY [facility] Stop: 02/14/17 12:01 Last Admin: 02/10/17 14:23 Dose: 250 mls/hr Levothyroxine Sodium (Synthroid) 25 mcg PO DAILY@0630 [facility] Last Admin: 02/10/17 06:27 Dose: 25 mcg Nicotine (Nicoderm Cq) 1 patch TD DAILY [facility] Last Admin: 02/10/17 12:18 Dose: 1 patch Rosuvastatin Calcium (Crestor) 20 mg PO HS [facility] Last Admin: 02/09/17 21:11 Dose: 20 mg - Labs Labs: 02/10/17 06:13 02/10/17 06:14 PT 12.1 SECONDS (9.7-12.2) 02/09/17 06:19 INR 1.1 02/09/17 06:19 APTT 27 SECONDS (21-34) 02/09/17 06:19 - Head Exam Head Exam: ATRAUMATIC, NORMOCEPHALIC - Eye Exam Eye Exam: EOMI, PERRL - ENT Exam ENT Exam: Mucous Membranes Moist - Neck Exam Neck Exam: Full ROM - Respiratory Exam Respiratory Exam: Clear to Ausculation Bilateral, NORMAL BREATHING PATTERN - Cardiovascular Exam Cardiovascular Exam: REGULAR RHYTHM, +S1, +S2 - GI/Abdominal Exam GI & Abdominal Exam: Soft, Normal Bowel Sounds - Neurological Exam Neurological Exam: Alert, Oriented x3 Additional comments: Neuro exam as per neurology Assessment and Plan - Assessment and Plan (Free Text) Assessment: 1. Paraxysmal A Fib: PRN digoxin or Metoprolol for HR control Eliquis 2.5 mg po bid ASA 81 mg po daily 2. CAD: ECHO with EF of 40-45% and some wall motion abnormalities. Given risk factors CAD high likely. No active work up for CAD at this time. Recommend antiplatelets and statins 3. CVA: Management as per Stroke neurologist. CVA most likley from A Fib. Bubble study negative. LASHAWN Sunday
[2017-02-10 22:05] VITALS: PULSE 128
[2017-02-11] MEDS: Levothyroxine 25 MCG TAB PO SCH (05:44)
[2017-02-11 08:58] LABS: ALB/GLOB RATIO 1.2 (1.0-2.1); ALKALINE PHOSPHATASE 44 U/L (38-126); ALT/SGPT 33 U/L (9-52); AST/SGOT 28 U/L (14-36); BILIRUBIN,TOTAL 0.8 mg/dL (0.2-1.3); BLOOD UREA NITROGEN 12 mg/dL (7-17); CALCIUM 8.9 mg/dl (8.6-10.4); CARBON DIOXIDE 25 mmol/L (22-30); CHLORIDE 103 mmol/L (98-107); GFR AFRICAN-AMERICAN > 60; GLUCOSE,RANDOM 67 mg/dL (65-105); POTASSIUM 4.1 mmol/L (3.6-5.2); SODIUM 137 mmol/L (132-148); TOTAL PROTEIN 5.8 g/dL (6.3-8.3)
[2017-02-11] MEDS: Azithromycin 500 MG in Sodium Chloride 0.9% 250 ML IVPB SCH (09:29)
--- NOTE | 2017-02-11 09:55 | RAD ---
HISTORY: bilateral wheezing COMPARISON: Portable chest 02/08/2017. FINDINGS: LUNGS: Limited medial basilar atelectasis or infiltrates are seen bilaterally. No pleural effusion bilaterally. No pneumothorax bilaterally. PLEURA: As discussed above. CARDIOVASCULAR: Normal. OSSEOUS STRUCTURES: No significant abnormalities. VISUALIZED UPPER ABDOMEN: Normal. OTHER FINDINGS: None. IMPRESSION: Limited medial bibasilar atelectasis or infiltrates are seen in the interval without pleural effusion. Remainder the examination appears stable in the interval.
--- NOTE | 2017-02-11 11:02 | CP.PCM.PN ---
<Eugenie Fisher - Last Filed: 02/11/17 16:45> Subjective - Date & Time of Evaluation Date of Evaluation: 02/11/17 Time of Evaluation: 08:30 - Subjective Subjective: Medicine Progress Note: Patient was seen and examined in the AM at bedside. Patient states her right arm has better range of motion today and she states it is no longer painful when she moves her right arm. Patient states her slurred speech has improved. Patient states she continue to have a cough that produces phlegm yellow in color. Patient denies chest pain, palpitations, headache, nausea or vomiting. Objective - Vital Signs/Intake and Output Vital Signs (last 24 hours): Temp Pulse Resp BP Pulse Ox 98.4 F 94 H 18 102/61 97 02/11/17 08:57 02/11/17 08:57 02/11/17 08:57 02/11/17 08:57 02/11/17 08:57 Intake and Output: 02/11/17 02/11/17 06:59 18:59 Intake Total 300 Output Total 450 Balance -150 - Medications Medications: Current Medications Albuterol/Ipratropium (Duoneb 3 Mg/0.5 Mg (3 Ml) Ud) 3 ml INH RQ6 [facility] Apixaban (Eliquis) 2.5 mg PO BID [facility] Last Admin: 02/11/17 09:30 Dose: 2.5 mg Aspirin (Ecotrin) 81 mg PO DAILY [facility] Last Admin: 02/11/17 09:30 Dose: 81 mg Famotidine (Pepcid) 20 mg PO DAILY [facility] Azithromycin 500 mg/ Sodium (Chloride) 250 mls @ 250 mls/hr IVPB DAILY [facility] Stop: 02/14/17 12:01 Last Admin: 02/11/17 09:29 Dose: 250 mls/hr Levothyroxine Sodium (Synthroid) 25 mcg PO DAILY@0630 [facility] Last Admin: 02/11/17 05:44 Dose: 25 mcg Nicotine (Nicoderm Cq) 1 patch TD DAILY [facility] Last Admin: 02/11/17 09:30 Dose: 1 patch Rosuvastatin Calcium (Crestor) 20 mg PO HS [facility] Last Admin: 02/10/17 22:05 Dose: 20 mg - Labs Labs: 02/10/17 06:13 02/11/17 08:21 PT 12.1 SECONDS (9.7-12.2) 02/09/17 06:19 INR 1.1 02/09/17 06:19 APTT 27 SECONDS (21-34) 02/09/17 06:19 - Constitutional Appears: No Acute Distress - Head Exam Head Exam: ATRAUMATIC, NORMAL INSPECTION, NORMOCEPHALIC - Eye Exam Eye Exam: EOMI, Normal appearance, PERRL Pupil Exam: NORMAL ACCOMODATION - ENT Exam ENT Exam: Mucous Membranes Moist - Respiratory Exam Respiratory Exam: Wheezes, NORMAL BREATHING PATTERN - Cardiovascular Exam Cardiovascular Exam: REGULAR RHYTHM, RRR, +S1, +S2 - GI/Abdominal Exam GI & Abdominal Exam: Soft, Normal Bowel Sounds. absent: Tenderness - Back Exam Back Exam: Full ROM, NORMAL INSPECTION - Neurological Exam Neurological Exam: Alert, Awake, Oriented x3 Neuro motor strength exam: Left Upper Extremity: 5, Right Upper Extremity: 5, Left Lower Extremity: 5, Right Lower Extremity: 5 - Psychiatric Exam Psychiatric exam: Normal Affect - Skin Skin Exam: Abrasion (on her right knee), Normal Color, Warm Assessment and Plan (1) CVA (cerebral vascular accident) Assessment & Plan: Neurology consult: Dr. Cummings --> help appreciated CT of the Head: An acute or subacute brain infarction is suspected at the left basal ganglia at the posterior superior distribution. Follow-up CT or MRI is advised. No definite intracranial hemorrhage. Limited age-related diffuse cerebral atrophy. Per Dr. Zoila iniguez to start therapeutic Lovenox for atrial fibrillation Carotid doppler: Right duplex scan does not suggest hemodynamically significant stenosis; Left duplex scan does not suggest hemodynamically significant stenosis Head/Neck CTA: No significant interval change in occlusion of the distal left M1 segment likely related to thrombosis with attenuation of the M2 segments. No hemodynamicaly significant stenosis in the internal carotid arteries. Extensive calcified atherosclerotic plaques in the left proximal internal carotid artery. ECHO 40-45% EF LASHAWN to be completed Tuesday 02/13 Eliquis 2.5mg PO BID Rosuvastatin 20mg PO HS f/u PT eval and treat f/u OT eval and treat f/u Speech therapy Status: Acute (2) History of atrial fibrillation Assessment & Plan: Patient was not taking any medications for her atrial fibrillation at home. Patient was given a stat one time dose of 10mg Cardizem in the ED Cardiology Consult: Dr. Laguerre --> help appreciated ICU Consult: Dr. Wiley --> help appreciated Per Dr. Zoila iniguez to start therapeutic Lovenox for atrial fibrillation Eliquis 2.5mg PO BID Aspirin 81mg PO Daily Metoprolol Tartrate 12.5mg PO BID PRN for HR >120; Hold for SPB less than 110 Status: Acute (3) CAD (coronary artery disease) Assessment & Plan: 40mg of Atorvastatin Status: Chronic (4) History of hypothyroidism Assessment & Plan: 0.025mg Levothyroixine Status: Chronic (5) Cough Assessment & Plan: Chest X-ray: limited medical bibasial atelectasis or infiltrates without pleural effusion Duonebs q6h Azithromycin 500mg for 5 days (started 02/10/17) Status: Acute <Octavio Muhammad Jr. - Last Filed: 02/12/17 14:13> Objective - Vital Signs/Intake and Output Vital Signs (last 24 hours): Temp Pulse Resp BP Pulse Ox 98.4 F 112 H 20 125/52 L 96 02/12/17 07:00 02/12/17 07:00 02/12/17 07:00 02/12/17 07:00 02/12/17 07:00 Intake and Output: 02/12/17 02/12/17 06:59 18:59 Intake Total 480 Balance 480 - Medications Medications: Current Medications Albuterol/Ipratropium (Duoneb 3 Mg/0.5 Mg (3 Ml) Ud) 3 ml INH RQ6 [facility] Last Admin: 02/12/17 13:35 Dose: Not Given Apixaban (Eliquis) 2.5 mg PO BID [facility] Last Admin: 02/12/17 10:13 Dose: 2.5 mg Aspirin (Ecotrin) 81 mg PO DAILY [facility] Last Admin: 02/12/17 10:13 Dose: 81 mg Famotidine (Pepcid) 20 mg PO DAILY [facility] Last Admin: 02/12/17 10:13 Dose: 20 mg Levothyroxine Sodium (Synthroid) 25 mcg PO DAILY@0630 [facility] Last Admin: 02/12/17 05:52 Dose: 25 mcg Magnesium Oxide (Mag-Ox) 400 mg PO BID [facility] Last Admin: 02/12/17 10:13 Dose: 400 mg Metoprolol Tartrate (Lopressor) 12.5 mg PO BID PRN PRN Reason: Heart rate Last Admin: 02/12/17 10:15 Dose: 12.5 mg Nicotine (Nicoderm Cq) 1 patch TD DAILY [facility] Last Admin: 02/12/17 10:13 Dose: 1 patch Rosuvastatin Calcium (Crestor) 20 mg PO HS [facility] Last Admin: 02/11/17 21:31 Dose: 20 mg - Labs Labs: 02/12/17 07:08 02/12/17 07:08 PT 12.1 SECONDS (9.7-12.2) 02/09/17 06:19 INR 1.1 02/09/17 06:19 APTT 27 SECONDS (21-34) 02/09/17 06:19 Attending/Attestation - Attestation I have personally seen and examined this patient.: Yes I have fully participated in the care of the patient.: Yes I have reviewed all pertinent clinical information, including history, physical exam and plan: Yes Notes (Text): 02/12/17 14:13 Agree with resident note and plan of care
[2017-02-11] MEDS: Albuterol-Ipratrop 3 mg / 0.5 (3 ml) UD INH SCH ×2 (13:45→19:12)
[2017-02-11 14:01] LABS: BASO % 0.1 % (0.0-2.0); EOS % 0.7 % (0.0-4.0); HEMATOCRIT 36.3 % (34.0-47.0); LYMPH # 0.9 K/uL (1.0-4.3); MEAN CELL VOLUME 104.3 fL (81.0-99.0); MEAN CORPUSCULAR HEMOGLOBIN 35.5 pg (27.0-31.0); MEAN CORPUSCULAR HGB CONC 34.1 g/dL (33.0-37.0); MEAN PLATELET VOLUME 7.8 fL (7.2-11.7); MONO # 0.5 K/uL (0.0-0.8); MONO % 8.4 % (0.0-10.0); RED CELL DISTRIBUTION WIDTH 12.7 % (11.5-14.5); WHITE BLOOD COUNT 6.2 K/uL (4.8-10.8)
--- NOTE | 2017-02-11 19:22 | CP.PCM.PN ---
Subjective - Date & Time of Evaluation Date of Evaluation: 02/11/17 Time of Evaluation: 19:20 - Subjective Subjective: Mrs. Reyes was seen and examined today at bedside. She said she felt much better. Speech is improved and right sided strength is improved. There were no acute events overnight. She did complain of constipation. Objective - Vital Signs/Intake and Output Vital Signs (last 24 hours): Temp Pulse Resp BP Pulse Ox 98.3 F 90 20 116/67 95 02/11/17 15:46 02/11/17 17:00 02/11/17 15:46 02/11/17 15:46 02/11/17 15:46 Intake and Output: 02/11/17 02/12/17 18:59 06:59 Intake Total 400 Balance 400 - Medications Medications: Current Medications Albuterol/Ipratropium (Duoneb 3 Mg/0.5 Mg (3 Ml) Ud) 3 ml INH RQ6 [facility] Last Admin: 02/11/17 19:12 Dose: Not Given Apixaban (Eliquis) 2.5 mg PO BID [facility] Last Admin: 02/11/17 17:47 Dose: 2.5 mg Aspirin (Ecotrin) 81 mg PO DAILY [facility] Last Admin: 02/11/17 09:30 Dose: 81 mg Famotidine (Pepcid) 20 mg PO DAILY [facility] Azithromycin 500 mg/ Sodium (Chloride) 250 mls @ 250 mls/hr IVPB DAILY [facility] Stop: 02/14/17 12:01 Last Admin: 02/11/17 09:29 Dose: 250 mls/hr Levothyroxine Sodium (Synthroid) 25 mcg PO DAILY@0630 [facility] Last Admin: 02/11/17 05:44 Dose: 25 mcg Metoprolol Tartrate (Lopressor) 12.5 mg PO BID PRN PRN Reason: Heart rate Nicotine (Nicoderm Cq) 1 patch TD DAILY [facility] Last Admin: 02/11/17 09:30 Dose: 1 patch Rosuvastatin Calcium (Crestor) 20 mg PO HS [facility] Last Admin: 02/10/17 22:05 Dose: 20 mg - Labs Labs: 02/11/17 13:52 02/11/17 08:21 PT 12.1 SECONDS (9.7-12.2) 02/09/17 06:19 INR 1.1 02/09/17 06:19 APTT 27 SECONDS (21-34) 02/09/17 06:19 - Neurological Exam Neurological Exam: Abnormal Gait, Alert, Awake, CN II-XII Intact, Oriented x3 Neuro motor strength exam: Left Upper Extremity: 5, Right Upper Extremity: 4, Left Lower Extremity: 5, Right Lower Extremity: 4 Additional comments: NIHSS=2 Assessment and Plan (1) CVA (cerebral vascular accident) Assessment & Plan: Continue Eliquis 2.5 mg BID and Aspirin 81 mg daily. Will start magnesium oxide 400 mg BID which will help to prevent headaches and may help her constipation as well. Status: Acute
--- NOTE | 2017-02-11 19:57 | CP.PCM.PN ---
Subjective - Date & Time of Evaluation Date of Evaluation: 02/11/17 Time of Evaluation: 14:10 - Subjective Subjective: Patient seen and evaluated Feels better neurologically Denies chest pain and dyspnea Objective - Vital Signs/Intake and Output Vital Signs (last 24 hours): Temp Pulse Resp BP Pulse Ox 98.3 F 90 20 116/67 95 02/11/17 15:46 02/11/17 17:00 02/11/17 15:46 02/11/17 15:46 02/11/17 15:46 Intake and Output: 02/11/17 02/12/17 18:59 06:59 Intake Total 400 Balance 400 - Medications Medications: Current Medications Albuterol/Ipratropium (Duoneb 3 Mg/0.5 Mg (3 Ml) Ud) 3 ml INH RQ6 [facility] Last Admin: 02/11/17 19:12 Dose: Not Given Apixaban (Eliquis) 2.5 mg PO BID [facility] Last Admin: 02/11/17 17:47 Dose: 2.5 mg Aspirin (Ecotrin) 81 mg PO DAILY [facility] Last Admin: 02/11/17 09:30 Dose: 81 mg Famotidine (Pepcid) 20 mg PO DAILY [facility] Azithromycin 500 mg/ Sodium (Chloride) 250 mls @ 250 mls/hr IVPB DAILY [facility] Stop: 02/14/17 12:01 Last Admin: 02/11/17 09:29 Dose: 250 mls/hr Levothyroxine Sodium (Synthroid) 25 mcg PO DAILY@0630 [facility] Last Admin: 02/11/17 05:44 Dose: 25 mcg Magnesium Oxide (Mag-Ox) 400 mg PO BID [facility] Metoprolol Tartrate (Lopressor) 12.5 mg PO BID PRN PRN Reason: Heart rate Nicotine (Nicoderm Cq) 1 patch TD DAILY [facility] Last Admin: 02/11/17 09:30 Dose: 1 patch Rosuvastatin Calcium (Crestor) 20 mg PO HS [facility] Last Admin: 02/10/17 22:05 Dose: 20 mg - Labs Labs: 02/11/17 13:52 02/11/17 08:21 PT 12.1 SECONDS (9.7-12.2) 02/09/17 06:19 INR 1.1 02/09/17 06:19 APTT 27 SECONDS (21-34) 09/01/17 06:19 - Head Exam Head Exam: ATRAUMATIC, NORMAL INSPECTION - Eye Exam Eye Exam: EOMI, PERRL Pupil Exam: NORMAL ACCOMODATION - ENT Exam ENT Exam: Mucous Membranes Moist - Neck Exam Neck Exam: Full ROM - Respiratory Exam Respiratory Exam: Clear to Ausculation Bilateral, NORMAL BREATHING PATTERN - Cardiovascular Exam Cardiovascular Exam: Irregular Rhythm, +S1, +S2 - GI/Abdominal Exam GI & Abdominal Exam: Soft, Normal Bowel Sounds - Neurological Exam Neurological Exam: Alert, Oriented x3 Additional comments: Neuro exam as per Neurology - Skin Skin Exam: Warm Assessment and Plan - Assessment and Plan (Free Text) Assessment: 1. Paraxysmal A Fib: PRN digoxin or Metoprolol for HR control Eliquis 2.5 mg po bid ASA 81 mg po daily 2. CAD: ECHO with EF of 40-45% and some wall motion abnormalities. Given risk factors CAD high likely. No active work up for CAD at this time. Recommend antiplatelets and statins 3. CVA: Management as per Stroke neurologist. CVA most likley from A Fib. Bubble study negative. LASHAWN Sunday
[2017-02-11] MEDS: Magnesium Oxide 400 mg Tab UD PO SCH (21:31)
[2017-02-12] MEDS: Albuterol-Ipratrop 3 mg / 0.5 (3 ml) UD INH SCH ×5 (01:19→19:12)
[2017-02-12] MEDS: Levothyroxine 25 MCG TAB PO SCH (05:52)
[2017-02-12 07:26] LABS: BASO % 0.2 % (0.0-2.0); EOS % 0.5 % (0.0-4.0); HEMATOCRIT 36.7 % (34.0-47.0); LYMPH # 1.1 K/uL (1.0-4.3); LYMPH % 15.2 % (20.0-40.0); MEAN CORPUSCULAR HGB CONC 34.6 g/dL (33.0-37.0); MEAN PLATELET VOLUME 7.8 fL (7.2-11.7); MONO # 0.6 K/uL (0.0-0.8); MONO % 9.2 % (0.0-10.0); RED CELL DISTRIBUTION WIDTH 12.7 % (11.5-14.5)
[2017-02-12 07:56] LABS: ALB/GLOB RATIO 1.1 (1.0-2.1); ALKALINE PHOSPHATASE 50 U/L (38-126); ALT/SGPT 33 U/L (9-52); AST/SGOT 27 U/L (14-36); BILIRUBIN,TOTAL 0.7 mg/dL (0.2-1.3); BLOOD UREA NITROGEN 16 mg/dL (7-17); CARBON DIOXIDE 25 mmol/L (22-30); CHLORIDE 102 mmol/L (98-107); GFR AFRICAN-AMERICAN > 60; GLUCOSE,RANDOM 82 mg/dL (65-105); PHOSPHOROUS 3.4 mg/dL (2.5-4.5); POTASSIUM 3.8 mmol/L (3.6-5.2); SODIUM 140 mmol/L (132-148); TOTAL PROTEIN 6.5 g/dL (6.3-8.3)
--- NOTE | 2017-02-12 09:24 | CP.PCM.PN ---
<Nirali Rojas - Last Filed: 02/12/17 13:53> Subjective - Date & Time of Evaluation Date of Evaluation: 02/12/17 Time of Evaluation: 07:00 - Subjective Subjective: PGY1- Medicine Note- Dr. Muhammad's Service Patient seen and examined at bedside and in no acute distress. Patient says she is feeling better. Patient has increased strength of her right arm. Patient complains of constipation. Patient denies shortness of breath, chest pain, abdominal pain, n/v, diarrhea. Objective - Vital Signs/Intake and Output Vital Signs (last 24 hours): Temp Pulse Resp BP Pulse Ox 98.4 F 112 H 20 125/52 L 96 02/12/17 07:00 02/12/17 07:00 02/12/17 07:00 02/12/17 07:00 02/12/17 07:00 Intake and Output: 02/12/17 02/12/17 06:59 18:59 Intake Total 480 Balance 480 - Medications Medications: Current Medications Albuterol/Ipratropium (Duoneb 3 Mg/0.5 Mg (3 Ml) Ud) 3 ml INH RQ6 [facility] Last Admin: 02/12/17 04:01 Dose: 3 ml Apixaban (Eliquis) 2.5 mg PO BID [facility] Last Admin: 02/11/17 17:47 Dose: 2.5 mg Aspirin (Ecotrin) 81 mg PO DAILY [facility] Last Admin: 02/11/17 09:30 Dose: 81 mg Famotidine (Pepcid) 20 mg PO DAILY [facility] Azithromycin 500 mg/ Sodium (Chloride) 250 mls @ 250 mls/hr IVPB DAILY [facility] Stop: 02/14/17 12:01 Last Admin: 02/11/17 09:29 Dose: 250 mls/hr Levothyroxine Sodium (Synthroid) 25 mcg PO DAILY@0630 [facility] Last Admin: 02/12/17 05:52 Dose: 25 mcg Magnesium Oxide (Mag-Ox) 400 mg PO BID [facility] Last Admin: 02/11/17 21:31 Dose: 400 mg Metoprolol Tartrate (Lopressor) 12.5 mg PO BID PRN PRN Reason: Heart rate Nicotine (Nicoderm Cq) 1 patch TD DAILY [facility] Last Admin: 02/11/17 09:30 Dose: 1 patch Rosuvastatin Calcium (Crestor) 20 mg PO HS [facility] Last Admin: 02/11/17 21:31 Dose: 20 mg - Labs Labs: 02/12/17 07:08 02/12/17 07:08 PT 12.1 SECONDS (9.7-12.2) 02/09/17 06:19 INR 1.1 02/09/17 06:19 APTT 27 SECONDS (21-34) 02/09/17 06:19 - Constitutional Appears: Non-toxic, No Acute Distress - Head Exam Head Exam: ATRAUMATIC, NORMAL INSPECTION, NORMOCEPHALIC - Eye Exam Eye Exam: EOMI, Normal appearance - ENT Exam ENT Exam: Mucous Membranes Moist - Neck Exam Neck Exam: Full ROM. absent: Tenderness - Respiratory Exam Respiratory Exam: Clear to Ausculation Bilateral, NORMAL BREATHING PATTERN - Cardiovascular Exam Cardiovascular Exam: REGULAR RHYTHM, RRR - GI/Abdominal Exam GI & Abdominal Exam: Soft, Normal Bowel Sounds - Extremities Exam Extremities Exam: absent: Full ROM Additional comments: right arm less flexion than left arm - Neurological Exam Neurological Exam: Alert, Awake, Oriented x3 Neuro motor strength exam: Left Upper Extremity: 5, Right Upper Extremity: 5, Left Lower Extremity: 5, Right Lower Extremity: 5 - Psychiatric Exam Psychiatric exam: Normal Affect, Normal Mood - Skin Skin Exam: Intact, Normal Color, Warm Assessment and Plan - Assessment and Plan (Free Text) Assessment: (1) CVA (cerebral vascular accident) Assessment & Plan: Neurology consult: Dr. Cummings --> help appreciated CT of the Head: An acute or subacute brain infarction is suspected at the left basal ganglia at the posterior superior distribution. Follow-up CT or MRI is advised. No definite intracranial hemorrhage. Limited age-related diffuse cerebral atrophy. Per Dr. Zoila iniguez to start therapeutic Lovenox for atrial fibrillation Carotid doppler: Right duplex scan does not suggest hemodynamically significant stenosis; Left duplex scan does not suggest hemodynamically significant stenosis Head/Neck CTA: No significant interval change in occlusion of the distal left M1 segment likely related to thrombosis with attenuation of the M2 segments. No hemodynamicaly significant stenosis in the internal carotid arteries. Extensive calcified atherosclerotic plaques in the left proximal internal carotid artery. ECHO 40-45% EF LASHAWN to be completed Tuesday 02/13 Eliquis 2.5mg PO BID Rosuvastatin 20mg PO HS f/u PT eval and treat f/u OT eval and treat f/u Speech therapy Status: Acute (2) History of atrial fibrillation Assessment & Plan: Patient was not taking any medications for her atrial fibrillation at home. Patient was given a stat one time dose of 10mg Cardizem in the ED Cardiology Consult: Dr. Laguerre --> help appreciated ICU Consult: Dr. Wiley --> help appreciated Per Dr. Zoila iniguez to start therapeutic Lovenox for atrial fibrillation Eliquis 2.5mg PO BID Aspirin 81mg PO Daily Metoprolol Tartrate 12.5mg PO BID PRN for HR >120; Hold for SPB less than 110 Status: Acute (3) CAD (coronary artery disease) Assessment & Plan: 40mg of Atorvastatin Status: Chronic (4) Maculopapular Rash Assessment & Plan: rash on abdomen and lower back discontinued azithromycin 500mg Status: Acute (4) History of hypothyroidism Assessment & Plan: 0.025mg Levothyroixine Status: Chronic (5) Constipation Assessment & Plan: Lactulose 20gm PO once which then caused diarrhea. Status: Acute (6) Cough Assessment & Plan: Chest X-ray: limited medical bibasial atelectasis or infiltrates without pleural effusion Duonebs q6h Azithromycin 500mg stopped on 02/12 due to rash f/u cxray Pa/ Lateral 1 dose solumedrol given on 02/12 <Octavio Muhammad Jr. - Last Filed: 02/17/17 10:34> Objective - Vital Signs/Intake and Output Vital Signs (last 24 hours): Temp Pulse Resp BP Pulse Ox 98.4 F 100 H 18 108/63 98 02/13/17 15:00 02/13/17 16:43 02/15/17 11:18 02/13/17 15:00 02/15/17 11:18 - Labs Labs: 02/13/17 07:24 02/13/17 07:24 PT 13.0 SECONDS (9.7-12.2) H 02/13/17 07:24 INR 1.2 02/13/17 07:24 APTT 27 SECONDS (21-34) 02/09/17 06:19 Attending/Attestation - Attestation I have personally seen and examined this patient.: Yes I have fully participated in the care of the patient.: Yes I have reviewed all pertinent clinical information, including history, physical exam and plan: Yes Notes (Text): 02/17/17 10:34 Agree with resident note and plan of care
[2017-02-12] MEDS: Magnesium Oxide 400 mg Tab UD PO SCH ×2 (10:13→17:38)
[2017-02-12] MEDS: Azithromycin 500 MG in Sodium Chloride 0.9% 250 ML IVPB SCH (10:41)
--- NOTE | 2017-02-12 16:49 | RAD ---
HISTORY: shortness of breath, cough COMPARISON: Portable chest 02/11/2017. TECHNIQUE: Frontal and lateral views of the chest been submitted. FINDINGS: LUNGS: Normal changes appreciated in bilateral basilar atelectasis or limited infiltrates with linear atelectasis now noted at the left base. PLEURA: No significant pleural effusion identified. No pneumothorax apparent. CARDIOVASCULAR: Normal. OSSEOUS STRUCTURES: No significant abnormalities. VISUALIZED UPPER ABDOMEN: Normal. OTHER FINDINGS: None. IMPRESSION: Persistent bibasilar limited atelectasis or infiltrates with linear atelectasis identified at left base in the interval as well.
[2017-02-12] MEDS ORDERED: Sodium Chloride 0.9% 500 ML IV ONE (17:40)
--- NOTE | 2017-02-12 20:40 | CP.PCM.PN ---
Subjective - Date & Time of Evaluation Date of Evaluation: 02/12/17 Time of Evaluation: 15:35 - Subjective Subjective: Patient seen and evaluated C/O Cough No chest pain and dyspnea Objective - Vital Signs/Intake and Output Vital Signs (last 24 hours): Temp Pulse Resp BP Pulse Ox 97.5 F L 80 20 121/58 L 96 02/12/17 15:00 02/12/17 20:30 02/12/17 15:00 02/12/17 18:37 02/12/17 15:00 Intake and Output: 02/12/17 02/13/17 18:59 06:59 Intake Total 600 Balance 600 - Medications Medications: Current Medications Albuterol/Ipratropium (Duoneb 3 Mg/0.5 Mg (3 Ml) Ud) 3 ml INH RQ6 [facility] Last Admin: 02/12/17 19:12 Dose: 3 ml Apixaban (Eliquis) 2.5 mg PO BID [facility] Last Admin: 02/12/17 17:39 Dose: 2.5 mg Aspirin (Ecotrin) 81 mg PO DAILY [facility] Last Admin: 02/12/17 10:13 Dose: 81 mg Famotidine (Pepcid) 20 mg PO DAILY [facility] Last Admin: 02/12/17 10:13 Dose: 20 mg Levothyroxine Sodium (Synthroid) 25 mcg PO DAILY@0630 [facility] Last Admin: 02/12/17 05:52 Dose: 25 mcg Magnesium Oxide (Mag-Ox) 400 mg PO BID [facility] Last Admin: 02/12/17 17:38 Dose: 400 mg Metoprolol Tartrate (Lopressor) 12.5 mg PO BID PRN PRN Reason: Heart rate Last Admin: 02/12/17 10:15 Dose: 12.5 mg Nicotine (Nicoderm Cq) 1 patch TD DAILY [facility] Last Admin: 02/12/17 10:13 Dose: 1 patch Rosuvastatin Calcium (Crestor) 20 mg PO HS [facility] Last Admin: 02/11/17 21:31 Dose: 20 mg - Labs Labs: 02/12/17 07:08 02/12/17 07:08 PT 12.1 SECONDS (9.7-12.2) 02/09/17 06:19 INR 1.1 02/09/17 06:19 APTT 27 SECONDS (21-34) 02/09/17 06:19 - Head Exam Head Exam: ATRAUMATIC, NORMAL INSPECTION - Eye Exam Eye Exam: EOMI, PERRL - ENT Exam ENT Exam: Mucous Membranes Moist - Neck Exam Neck Exam: Full ROM - Respiratory Exam Respiratory Exam: Clear to Ausculation Bilateral, NORMAL BREATHING PATTERN - Cardiovascular Exam Cardiovascular Exam: REGULAR RHYTHM, +S1, +S2 - GI/Abdominal Exam GI & Abdominal Exam: Soft, Normal Bowel Sounds - Neurological Exam Neurological Exam: Alert, Awake, Oriented x3 - Psychiatric Exam Psychiatric exam: Normal Mood - Skin Skin Exam: Warm Assessment and Plan - Assessment and Plan (Free Text) Assessment: 1. Paraxysmal A Fib: PRN digoxin or Metoprolol for HR control Eliquis 2.5 mg po bid ASA 81 mg po daily 2. CAD: ECHO with EF of 40-45% and some wall motion abnormalities. Given risk factors CAD high likely. No active work up for CAD at this time. Recommend antiplatelets and statins 3. CVA: Management as per Stroke neurologist. CVA most likley from A Fib. Bubble study negative. LASHAWN tomorrow
[2017-02-13] MEDS: Albuterol-Ipratrop 3 mg / 0.5 (3 ml) UD INH SCH ×3 (01:25→13:02)
[2017-02-13] MEDS: Levothyroxine 25 MCG TAB PO SCH (05:35)
[2017-02-13 07:39] LABS: BASO % 0.6 % (0.0-2.0); EOS % 0.1 % (0.0-4.0); HEMATOCRIT 32.2 % (34.0-47.0); LYMPH # 0.8 K/uL (1.0-4.3); LYMPH % 10.6 % (20.0-40.0); MEAN CELL VOLUME 104.3 fL (81.0-99.0); MEAN CORPUSCULAR HEMOGLOBIN 35.9 pg (27.0-31.0); MEAN CORPUSCULAR HGB CONC 34.4 g/dL (33.0-37.0); MEAN PLATELET VOLUME 7.8 fL (7.2-11.7); MONO # 0.6 K/uL (0.0-0.8); MONO % 7.8 % (0.0-10.0); RED CELL DISTRIBUTION WIDTH 12.4 % (11.5-14.5); WHITE BLOOD COUNT 7.1 K/uL (4.8-10.8)
[2017-02-13 07:41] LABS: INR 1.2
[2017-02-13 08:08] LABS: CHLORIDE 104 mmol/L (98-107); SODIUM 144 mmol/L (132-148)
[2017-02-13 08:09] LABS: POTASSIUM 4.5 mmol/L (3.6-5.2)
[2017-02-13 08:10] LABS: GFR AFRICAN-AMERICAN > 60
[2017-02-13 08:11] LABS: ALB/GLOB RATIO 1.2 (1.0-2.1); ALKALINE PHOSPHATASE 41 U/L (38-126); ALT/SGPT 30 U/L (9-52); AST/SGOT 23 U/L (14-36); BILIRUBIN,TOTAL 0.6 mg/dL (0.2-1.3); BLOOD UREA NITROGEN 16 mg/dL (7-17); CARBON DIOXIDE 29 mmol/L (22-30); GLUCOSE,RANDOM 118 mg/dL (65-105); PHOSPHOROUS 3.4 mg/dL (2.5-4.5); TOTAL PROTEIN 6.2 g/dL (6.3-8.3)
[2017-02-13 08:12] LABS: CALCIUM 8.8 mg/dl (8.6-10.4); MAGNESIUM 2.2 mg/dL (1.6-2.3)
[2017-02-13] MEDS: Magnesium Oxide 400 mg Tab UD PO SCH ×2 (09:49→17:08)
[2017-02-13] MEDS ORDERED: Lidocaine 4% (Laryng-O-Jet) Kit MM ONE ×2 (11:14→11:52)
[2017-02-13] MEDS ORDERED: ePHEDrine 50 mg/ml Inj ONE (11:49)
[2017-02-13] MEDS ORDERED: Propofol 10 mg/ml Inj (20 ML) ONE (11:49)
[2017-02-13] MEDS ORDERED: Etomidate 20 mg/10ml Inj IV ONE (11:49)
--- NOTE | 2017-02-13 12:57 | CP.PCM.PN ---
Subjective - Date & Time of Evaluation Date of Evaluation: 02/13/17 Time of Evaluation: 12:53 - Subjective Subjective: Patient s/p LASHAWN Prelim Full Report to follow: 1. No intra cardiac shunt noted. Bubble study negative 2. No intra cardiac thrombus Objective - Vital Signs/Intake and Output Vital Signs (last 24 hours): Temp Pulse Resp BP Pulse Ox 98.1 F 65 18 126/65 98 02/13/17 07:15 02/13/17 08:24 02/13/17 07:15 02/13/17 07:15 02/13/17 07:15 Intake and Output: 02/13/17 02/13/17 06:59 18:59 Intake Total 900 Balance 900 - Medications Medications: Current Medications Albuterol/Ipratropium (Duoneb 3 Mg/0.5 Mg (3 Ml) Ud) 3 ml INH RQ6 [facility] Last Admin: 02/13/17 07:19 Dose: 3 ml Apixaban (Eliquis) 2.5 mg PO BID [facility] Last Admin: 02/13/17 09:49 Dose: 2.5 mg Aspirin (Ecotrin) 81 mg PO DAILY [facility] Last Admin: 02/13/17 09:48 Dose: 81 mg Famotidine (Pepcid) 20 mg PO DAILY [facility] Last Admin: 02/13/17 09:49 Dose: 20 mg Levothyroxine Sodium (Synthroid) 25 mcg PO DAILY@0630 [facility] Last Admin: 02/13/17 05:35 Dose: 25 mcg Magnesium Oxide (Mag-Ox) 400 mg PO BID [facility] Last Admin: 02/13/17 09:49 Dose: 400 mg Metoprolol Tartrate (Lopressor) 12.5 mg PO BID PRN PRN Reason: Heart rate Last Admin: 02/12/17 10:15 Dose: 12.5 mg Nicotine (Nicoderm Cq) 1 patch TD DAILY [facility] Last Admin: 02/12/17 10:13 Dose: 1 patch Rosuvastatin Calcium (Crestor) 20 mg PO HS [facility] Last Admin: 02/12/17 22:51 Dose: Not Given - Labs Labs: 02/13/17 07:24 02/13/17 07:24 PT 13.0 SECONDS (9.7-12.2) H 02/13/17 07:24 INR 1.2 02/13/17 07:24 APTT 27 SECONDS (21-34) 02/09/17 06:19
--- NOTE | 2017-02-13 13:21 | CP.PCM.DIS ---
Provider - Provider Date of Admission: 02/08/17 11:36 Attending physician: Octavio Muhammad Jr, MD Time Spent in preparation of Discharge (in minutes): 40 Diagnosis - Discharge Diagnosis (1) CVA (cerebral vascular accident) Status: Acute Priority: High (2) History of atrial fibrillation Status: Acute (3) CAD (coronary artery disease) Status: Chronic (4) History of hypothyroidism Status: Chronic (5) Cough Status: Acute Hospital Course - Lab Results Lab Results: Micro Results 02/10/17 14:44 Naris MRSA Culture - Final MRSA NOT DETECTED Most Recent Lab Values WBC 7.1 K/uL (4.8-10.8) 02/13/17 07:24 RBC 3.09 Mil/uL (3.80-5.20) L 02/13/17 07:24 Hgb 11.1 g/dL (11.0-16.0) 02/13/17 07:24 Hct 32.2 % (34.0-47.0) L 02/13/17 07:24 MCV 104.3 fL (81.0-99.0) H 02/13/17 07:24 MCH 35.9 pg (27.0-31.0) H 02/13/17 07:24 MCHC 34.4 g/dL (33.0-37.0) 02/13/17 07:24 RDW 12.4 % (11.5-14.5) 02/13/17 07:24 Plt Count 148 K/uL (130-400) 02/13/17 07:24 MPV 7.8 fL (7.2-11.7) 02/13/17 07:24 Neut % (Auto) 80.9 % (50.0-75.0) H 02/13/17 07:24 Lymph % (Auto) 10.6 % (20.0-40.0) L 02/13/17 07:24 Wilcox % (Auto) 7.8 % (0.0-10.0) 02/13/17 07:24 Eos % (Auto) 0.1 % (0.0-4.0) 02/13/17 07:24 Baso % (Auto) 0.6 % (0.0-2.0) 02/13/17 07:24 Neut # 5.8 K/uL (1.8-7.0) 02/13/17 07:24 Lymph # 0.8 K/uL (1.0-4.3) L 02/13/17 07:24 Wilcox # 0.6 K/uL (0.0-0.8) 02/13/17 07:24 Eos # 0.0 K/uL (0.0-0.7) 02/13/17 07:24 Baso # 0.0 K/uL (0.0-0.2) 02/13/17 07:24 Neutrophils % (Manual) 84 % (50-75) H 02/08/17 11:13 Band Neutrophils % 8 % (0-2) H 02/08/17 11:13 Lymphocytes % (Manual) 6 % (20-40) L 02/08/17 11:13 Monocytes % (Manual) 2 % (0-10) 02/08/17 11:13 Platelet Estimate Normal (NORMAL) 02/08/17 11:13 RBC Morphology Normal 02/08/17 11:13 PT 13.0 SECONDS (9.7-12.2) H 02/13/17 07:24 INR 1.2 02/13/17 07:24 APTT 27 SECONDS (21-34) 02/09/17 06:19 Sodium 144 mmol/L (132-148) 02/13/17 07:24 Potassium 4.5 mmol/L (3.6-5.2) 02/13/17 07:24 Chloride 104 mmol/L (98-107) 02/13/17 07:24 Carbon Dioxide 29 mmol/L (22-30) 02/13/17 07:24 Anion Gap 15 (10-20) 02/13/17 07:24 BUN 16 mg/dL (7-17) 02/13/17 07:24 Creatinine 0.8 MG/DL (0.7-1.2) 02/13/17 07:24 Est GFR ( Amer) > 60 02/13/17 07:24 Est GFR (Non-Af Amer) > 60 02/13/17 07:24 POC Glucose (mg/dL) 100 mg/dL (65-110) 02/11/17 20:55 Random Glucose 118 mg/dL (65-105) H 02/13/17 07:24 Hemoglobin A1c 6.1 % (4.2-6.5) 02/08/17 11:13 Calcium 8.8 mg/dl (8.6-10.4) 02/13/17 07:24 Phosphorus 3.4 mg/dL (2.5-4.5) 02/13/17 07:24 Magnesium 2.2 mg/dL (1.6-2.3) 02/13/17 07:24 Total Bilirubin 0.6 mg/dL (0.2-1.3) 02/13/17 07:24 AST 23 U/L (14-36) 02/13/17 07:24 ALT 30 U/L (9-52) 02/13/17 07:24 Alkaline Phosphatase 41 U/L (38-126) 02/13/17 07:24 Troponin I < 0.0120 ng/mL (0.00-0.120) 02/08/17 11:13 Total Protein 6.2 g/dL (6.3-8.3) L 02/13/17 07:24 Albumin 3.4 g/dL (3.5-5.0) L 02/13/17 07:24 Globulin 2.8 gm/dL (2.2-3.9) 02/13/17 07:24 Albumin/Globulin Ratio 1.2 (1.0-2.1) 02/13/17 07:24 Triglycerides 71 mg/dL (0-149) 02/08/17 11:13 Cholesterol 201 mg/dL (0-199) H 02/08/17 11:13 LDL Cholesterol Direct 147 mg/dL (0-129) H 02/08/17 11:13 HDL Cholesterol 54 mg/dL (30-70) 02/08/17 11:13 Thyroxine (T4) 6.69 ug/dL (5.5-11.0) 02/09/17 06:19 TSH 3rd Generation 3.46 mIU/L (0.46-4.68) 02/09/17 06:19 Blood Type A NEGATIVE 02/08/17 11:13 Blood Type Confirm A NEGATIVE 02/08/17 11:13 Antibody Screen Negative 02/08/17 11:13 - Hospital Course Hospital Course: CC:" Blood Pressure" HPI: 66 year old female with past medical history of hypertension and atrial fibrillation presents to the emergency room after patient was found on the floor by EMS. Per patient she had no complaints the night prior. Patient states she woke up today at 5:30am and watched TV and had her normal routine. Patient that in the morning while she was checking her blood pressure she felt a bit dizzy but does not recall what time that happened. Patient states she does not remember falling on the floor. Per sister at bedside states the patient yelled "I can't breathe." That is when the sister ran downstairs but could not open the door because it was locked and her sister wasn't coming to the door. The sister called 911 and EMS found her on the floor and brought her to the hospital. Patient states this has never occurred in the past and she has never been hospitalized. Patient states she is compliant with all of her medication. Patient states she currently has a cough and blurry vision bilaterally. Patient states she does currently have weakness on her right arm but denies any numbness or tingling. Patient denies chest pain, shortness of breath, palpations, headache, dizziness, lightheadedness, numbness, tingling, nausea, vomiting, constipation, diarrhea, hematuria, dysuria, or change in hearing. Patient denies sick contacts or recent travel. PMD: Dr. 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 Patient smokes about a half to one pack per day for the past 30+ years. Patient denies alcohol use, illicit drug and sexual activity. Medications: 0.025mg Levothyroxine; 40mg Atorvastatin; 150mg Valsartan, Nebulizer daily Allergies: Penicillin (patient swells); Antihistamine (patient swells) Hospital Course: 02/08/17: 66 female patient with a history of Atria fibrillation reported to emergency department via ambulance for weakness. Patient reports falling early in the morning and could not get up. Patient was found by sister who called an ambulance. Patient was found to have right sided weakness, facial droop, and slurred speech. Patient admitted to ICU due to severity of symptoms and workup for stroke. Chest x-ray was done in the emergency room and was suggestive of cardiomegaly, no pleural effusions and no pulmonary vascular derangement. EKG performed in ED showed sinus tachycardia with premature SVCs with frequent SVCs , ST and T wave abnormalities also noted. Head CT performed in ED and showed a suspected acute or subacute brain infarction at the left basal ganglia at the posterior superior distribution, no intracranial hemorrhage noted. Carotid Doppler performed and showed no significant stenosis of the left and right carotid arteries. ECHO showed EF of 45%. Repeat CT of head and neck performed and showed occlusion at the distal left M1 likely due to thrombosis. Reconstitution of the distal left M2 branches. Dr. Cummings consulted for neurology symptoms. 02/09/17: Dr. Laguerre consulted for management of Atrial-fibrillation. Echo performed and showed no bubbles injected from right to left. Negative bubble study suggesting no intracardiac right to left shunt. Head and Neck CT performed and showed no significant change in occlusion of distal left M1 likely related to thrombosis with attenuation of the M2 segments, No hemodynamically significant stenosis in the internal carotid arteries. Extensive calcified atherosclerotic plaques in left proximal internal carotid artery. 02/11/17: CXR performed and showed limited medial bibasilar atelectasis or infiltrates are seen in the interval without pleural effusion. 02/12/17: CXR performed and showed persistent bibasilar limited atelectasis or infiltrates with linear atelectasis identified at the left base in the interval. 02/13/17: Trans Esophageal Echo was done per Dr. Laguerre and was negative. Patient has improved her upper extremity range of motion and muscle strength. Patient has also improved with her speech since admission. Patient agrees to go to rehab for physical therapy. Also discussed with patient the importance of smoking cessation and patient understands the importance and she states she will no longer smoke. Patient stable for discharge to rehab per Dr. Muhammad, Dr. Cummings and Dr. Laguerre. Patient to follow up with Dr. Leiva for cardiology in 1-2 weeks. Patient to follow up with primary physician in 1-2 weeks. Patient to resume home medications. Patient to stop home medication: Valsartan 160mg PO Patient to start new medication: Eliquis 2.5mg PO BID daily Aspirin 81mg PO daily Magnesium Oxide 400mg PO BID Metoprolol Tartrate 12.5mg PO BID Patient to return to the emergency room if symptoms return or worsen. This is a brief summary of events. For a complete course, refer to the medical record. Discharge Exam - Head Exam Head Exam: ATRAUMATIC, NORMAL INSPECTION, NORMOCEPHALIC - Eye Exam Eye Exam: EOMI, Normal appearance, PERRL Pupil Exam: NORMAL ACCOMODATION - ENT Exam ENT Exam: Mucous Membranes Moist Additional comments: mild facial droop on right side - Respiratory Exam Respiratory Exam: Clear to PA & Lateral, NORMAL BREATHING PATTERN. absent: Rales, Rhonchi, Wheezes - Cardiovascular Exam Cardiovascular Exam: REGULAR RHYTHM, RRR, +S1, +S2 - GI/Abdominal Exam GI & Abdominal Exam: Normal Bowel Sounds, Soft. absent: Tenderness - Extremities Exam Extremities exam: normal inspection - Neurological Exam Neurological exam: Alert, CN II-XII Intact, Oriented x3 - Psychiatric Exam Psychiatric exam: Normal Affect, Normal Mood - Skin Skin Exam: Normal Color, Warm Discharge Plan - Discharge Medications Prescriptions: Apixaban [Eliquis] 2.5 mg PO BID #60 tab Aspirin [Aspirin Chewable] 81 mg PO ONCE #30 Magnesium Oxide [Mag-Ox] 400 mg PO BID #60 tab Metoprolol Tartrate [Lopressor] 12.5 mg PO BID PRN #60 tab PRN Reason: Heart Rate - Follow Up Plan Condition: FAIR Disposition: REHAB FACILITY/REHAB UNIT Instructions: Ischemic Stroke (DC), Ischemic Stroke (GEN) Additional Instructions: Follow up with Dr. Leiva, cardiology in 1- 2 weeks Follow up with your Primary Care Physician in 1-2 weeks.
[2017-02-13 16:00] VITALS: BP 108/63; TEMP 98.4
[2017-02-13 16:12] VITALS: PULSE 100
--- NOTE | 2017-02-13 22:52 | PN ---
DATE: 02/13/2017 SUBJECTIVE: This is a 66-year-old white female with complaint of atrial fibrillation, came to the hospital with right-sided weakness and difficulty in speech. CAT scan of the head showed subacute left basal ganglion infarct and the patient was also given metoprolol and was converted to sinus rhythm. The patient continues to complain right-sided weakness. Now, she is going for rehab. PAST MEDICAL HISTORY: As above. Past history of hypertension, atrial fibrillation, bronchitis and hypothyroidism. ALLERGIES: ALLERGIC TO ANTIHISTAMINE AND PENICILLIN. PHYSICAL EXAMINATION: HEENT: Normocephalic and atraumatic. NECK: Supple. NEUROLOGIC: Cranial nerves II to XII were tested. Pupil reactive. EOM intact. Visual field full. No facial asymmetry. Tongue midline. MOTOR EXAMINATION: Moves all the extremities equally. Tone normal. Deep tendon reflexes of +1. Both plantars are downgoing. Sensory appears intact. Cerebellar and gait deferred. IMPRESSION: Left basal ganglia infarct, possibly embolic. Continue present management. The patient is going for rehab. We will follow up. Beto Crawford MD
--- NOTE | 2017-02-14 00:37 | CARD ---
APPROVED REPORT EKG Measurement Heart [id number] <Conclusion> Atrial fibrillation with rapid ventricular response Left axis deviation Nonspecific ST and T wave abnormality Abnormal ECG
--- NOTE | 2017-02-14 00:39 | CARD ---
APPROVED REPORT EKG Measurement Heart [id number] <Conclusion> Sinus tachycardia with premature supraventricular complexes Nonspecific ST & T wave abnormality, Abnormal ECG
[2017-02-15 13:06] VITALS: RESP 18; O2SAT 98
--- NOTE | 2017-02-18 10:23 | CARD ---
APPROVED REPORT EXAM: Transesophageal echocardiogram with color flow Doppler. INDICATION CVA/TIA Atrial Fibrillation L BASAL GANGLIE INFARCT RISK FACTORS Hypertension Mitral Valve E/A ratio0.0 TDI E/Lateral E'0.0E/Medial E'0.0 Reason For Test : Rule out cardiac source of emboli. PROCEDURE After obtaining informed consent, patient underwent transesophageal echo in the [facility]. Type of Sedation : Conscious Sedation Sedation was achieved with intravenously. The LASHAWN was performed complications. Throughout the procedure, the blood pressure, pulse oximetry, cardiac rhythm, and rate were monitored. The patient tolerated the procedure without adverse effects. Recovery from conscious sedation was uneventful and vital signs were stable. LEFT VENTRICLE The left ventricle is normal size. Left ventricle systolic function is normal. The Ejection Fraction is 60-65%. No left ventricle thrombus noted on this study. There is no ventricular septal defect visualized. RIGHT VENTRICLE The right ventricle is normal size. The right ventricular systolic function is normal. ATRIA The left atrium size is normal. The right atrium size is normal. The interatrial septum is intact with no evidence for an atrial septal defect. AORTIC VALVE The aortic valve is normal in structure. No aortic regurgitation is present. There is no aortic valvular stenosis. There is no aortic valvular vegetation. MITRAL VALVE The mitral valve is normal in structure. There is no mitral valve stenosis. Mitral regurgitation is mild. TRICUSPID VALVE The tricuspid valve is normal in structure. There is mild tricuspid regurgitation. There is no tricuspid valve prolapse or vegetation. There is no tricuspid valve stenosis. PULMONIC VALVE The pulmonary valve is normal in structure. GREAT VESSELS The aortic root is normal in size. <Conclusion> Left ventricle systolic function is normal. The Ejection Fraction is 60-65%. The aortic valve is normal in structure. Mitral regurgitation is mild. The interatrial septum is intact with no evidence for an atrial septal defect.
== END 2017-02-13 19:50 | DRG 65 ==
LOC: C.ER 10:58 → C.9E 11:36 → C.6T 13:47 → C.9I 19:44 → C.6T 02-10 16:23
PROVIDERS: ADMIT Internal Medicine; ATTEND Internal Medicine
DX: I63.9 Cerebral infarction, unspecified (principal); G81.91 Hemiplegia, unspecified affecting right dominant side; I48.0 Paroxysmal atrial fibrillation; J98.11 Atelectasis; I10 Essential (primary) hypertension; R47.81 Slurred speech; E03.9 Hypothyroidism, unspecified; F17.210 Nicotine dependence, cigarettes, uncomplicated; I25.10 Atherosclerotic heart disease of native coronary artery without angina pectoris; K59.00 Constipation, unspecified; R29.810 Facial weakness; Z79.01 Long term (current) use of anticoagulants